=== PATIENT | male | born 1945 | race Caucasian/White ===

== ENCOUNTER 2020-08-23 09:01 | Inpatient (IN) | payer MEDICARE, BC ==
[2020-08-23] MEDS ORDERED: Furosemide 40 MG/4 ML VIAL IVPUSH ONE (09:08)
[2020-08-23] MEDS ORDERED: Sodium Chloride 0.9% 10 ML Syringe FLUSH PRN ×2 (09:08→11:10)
--- NOTE | 2020-08-23 09:11 | EDM.PDOC ---
ED HPI GENERAL MEDICAL PROBLEM - General Chief Complaint: Respiratory Problem Stated Complaint: [facility] Time Seen by Provider: 08/23/20 09:06 Source of Information: Reports: Patient, EMS History Limitations: Reports: No Limitations - History of Present Illness INITIAL COMMENTS - FREE TEXT/NARRATIVE: 75-year-old male attends the ED per [facility] from the [facility] walk-in clinic this morning. Patient attended the clinic because of dyspnea gradually worsening over the last week. He was identified to have significant swelling of both lower extremities with dependent edema up to the knees. He was found to be hypoxic on their recordings with O2 sats in the upper 70s. Paramedics arrived and placed him on oxygen by nonrebreather mask at 8 L/min. O2 sats improved up to 96%. He was taken off the mask when she reached the ED and placed on nasal cannula at 3 L/min with O2 sats improved to 96% patient is not on home oxygen. By history he is still smoking and has a history of COPD and congestive heart failure. He has had both his COVID-19 shots. Patient reports that shortness of breath is gradually worsened over the last week. He states he slept fairly well last night in spite of dyspnea. He denies any orthopnea. He was not able to eat his breakfast this morning. Does have a mild cough nonproductive. Denies hemoptysis. Denies fever or chills. Onset: Gradual Onset Date: 08/17/20 Duration: Day(s):, Constant, Getting Worse Location: Reports: Chest (Dyspnea on minimal exertion. Weakness lower extremities.) Quality: Reports: Other (Dyspnea) Severity: Moderate (Moderate to severe.) Improves with: Reports: Rest Worsens with: Reports: Other (Any walking place about almost immediately.) Context: Denies: Activity, Exercise, Lifting, Sick Contact, Trauma, Other Associated Symptoms: Reports: Cough, cough w sputum (Very minimal sputum production.), Loss of Appetite, Malaise, Shortness of Breath, Weakness (Both lower extremities.). Denies: Fever/Chills, Headaches, Nausea/Vomiting, Rash, Seizure, Syncope Treatments [employer]: Reports: Other (see below) (Placed on oxygen by the paramedics.) - Related Data Allergies Allergy/AdvReac Type Severity Reaction Status Date / Time No Known Allergies Allergy Verified 08/23/20 09:11 Home Meds: Home Meds Aspirin [Lo-Dose Aspirin EC] 81 mg PO DAILY 08/23/20 [History] Cholecalciferol (Vitamin D3) [Vitamin D3] 25 mcg PO DAILY 08/23/20 [History] ClonazePAM [KlonoPIN] 1 mg PO BEDTIME 08/23/20 [History] Ezetimibe [Zetia] 10 mg PO DAILY 08/23/20 [History] Fish Oil/Borage/Flax/Om3,6,9 1 [[place] 3-6-9 Complex Softgel] 300 mg PO BID 08/23/20 [History] Multivitamin with Minerals [Multiple Vitamin] 1 cap PO DAILY 08/23/20 [History] Pravastatin [Pravachol] 20 mg PO DAILY 08/23/20 [History] Sertraline [Zoloft] 100 mg PO BEDTIME 08/23/20 [History] Vitamin B Complex 2 tab PO DAILY 08/23/20 [History] risperiDONE [Risperdal] 2 mg PO BEDTIME 08/23/20 [History] Past Medical History Cardiovascular History: Reports: Heart Failure, High Cholesterol, Hypertension, PVD, SOB on Exertion Respiratory History: Reports: COPD (Still smoking cigarettes.) Musculoskeletal History: Reports: Back Pain, Chronic (Mild.), Osteoarthritis (Affecting knees hips neck.) Psychiatric History: Reports: Depression, Other (See Below) (insomnia) Social & Family History - Tobacco Core Measures Tobacco Use/Smoking Within Last 30 Days: Yes Smoking Frequency Within Last 30 Days: Reports: Five or More Cigarettes Per Day Smokeless Tobacco Use in Last 30 Days: No Desires Tobacco Cessation Medication: Refuses FDA Approved Med - Living Situation & Occupation Living situation: Reports: , Alone Occupation: Retired ED ROS GENERAL - Review of Systems Review Of Systems: See Below Constitutional: Reports: Malaise, Weakness, Fatigue, Decreased Appetite. Denies: Fever, Chills, Weight Loss HEENT: Reports: Glasses Respiratory: Reports: Shortness of Breath, Wheezing, Cough, Sputum (Occasional). Denies: Pleuritic Chest Pain, Hemoptysis ( white sputum production.) Cardiovascular: Reports: Blood Pressure Problem, Dyspnea on Exertion (Chronic edema around his ankles. It is currently up to his knees bilaterally.), Edema. Denies: Claudication, Lightheadedness, Orthopnea, Palpitations Endocrine: Reports: Fatigue GI/Abdominal: Reports: Constipation (Occasional problems with constipation.), Decreased Appetite. Denies: Abdominal Pain, Nausea, Stool Incontinence, Vomiting : Reports: Frequency, Other (Nocturia x3.) Musculoskeletal: Reports: Back Pain, Joint Pain (Some intermittent problems with low back pain knees hips shoulders and neck at times.) Skin: Reports: No Symptoms Neurological: Reports: No Symptoms Psychiatric: Reports: No Symptoms Hematologic/Lymphatic: Reports: No Symptoms Immunologic: Reports: No Symptoms ED EXAM, GENERAL - Physical Exam Exam: See Below Exam Limited By: No Limitations General Appearance: Alert, WD/WN, No Apparent Distress, Other (Temperature is 36.4. Heart rate was 72 and sinus. Respiratory was 20 with O2 sats of 96 to 97% on 3 L/min by nasal cannula. BP is 144/87.) Eye Exam: Bilateral Eye: Normal Fundi (No scleral icterus or blepharal pallor.), PERRL Throat/Mouth: Normal Voice, Other (Diffuse erythema of the oropharynx from cigarette smoking. No signs of infection.). No: Normal Teeth, Dysphagia Head: Atraumatic, Normocephalic Neck: Normal Inspection, Supple, Limited Range of Motion (Loss of at least 10 degrees lateral flexion and extension of the neck.). No: Full Range of Motion, Carotid Bruit, Lymphadenopathy (L), Lymphadenopathy (R) Respiratory/Chest: Respiratory Distress (Tachypnea at rest.), Decreased Breath Sounds (Diminished air entry of the lower 20% of lung nettles bilaterally.), Rhonchi, Wheezing (Wheezing throughout all 5 lobes of the lung.). No: Lungs Clear, Normal Breath Sounds, No Accessory Muscle Use Cardiovascular: Regular Rate, Rhythm, No Gallop, No Murmur, No Rub, JVD (To 3 cm below the right angle of the mandible.). No: Normal Peripheral Pulses, No Edema Peripheral Pulses: 1+: Posterior Tibial (L) (Barely palpable pulses in both lower extremities limited by significant dependent edema of the feet), Posterior Tibial (R), Dorsalis Pedis (L), Dorsalis Pedis (R) GI/Abdominal: Normal Bowel Sounds, Soft, Non-Tender, No Organomegaly, Distended (And diffusely tympany to percussion due to aerophagia.), Hernia (Does have a easily reducible umbilical hernia that does not bother him. No surgical scars appreciated.) Back Exam: Normal Inspection, Other (Not able to assess range of motion of his lower back at this time.). No: CVA Tenderness (L), CVA Tenderness (R) Extremities: Pedal Edema (4+ pitting edema up past the knees bilaterally.). No: Normal Inspection Neurological: Alert, Oriented, CN II-XII Intact, Normal Cognition. No: Normal Gait (Not able to assess in the ED.) Psychiatric: Normal Affect, Normal Mood Skin Exam: Warm, Dry, Intact, Normal Color. No: Cyanosis, Increased Warmth #1 Interpretation EKG Date: 08/23/20 Time: 09:30 Rhythm: NSR Rate (Beats/Min): 64 [place]: RAD-Right [place] Deviation (127 degrees) P-Wave: Enlarged (Biatrial hypertrophy) QRS: Other (Poor R wave progression V2 to V6. Delayed transition consider right ventricular hypertrophy) ST-T: Other (T wave inversion V1 to V4 consider anterior wall ischemia) QT: Normal EKG Interpretation Comments: Abnormal ECG Course - Vital Signs Last Recorded V/S: Last Vital Signs Temp 36.4 C 08/23/20 09:08 Pulse 72 08/23/20 09:08 Resp 20 08/23/20 09:08 BP 144/87 H 08/23/20 09:08 Pulse Ox 100 08/23/20 09:19 - Orders/Labs/Meds Orders: Active Orders 24 hr Category Date Time Status RT Aerosol Therapy [RC] ASDIRECTED Care 08/23/20 09:12 Active Sodium Chloride 0.9% [Saline Flush] Med 08/23/20 09:08 Active 10 ml FLUSH ASDIRECTED PRN Peripheral IV Insertion Adult [OM.PC] Stat Oth 08/23/20 09:08 Ordered Medication Orders Acetaminophen (Acetaminophen 325 Mg Tab) 650 mg PO Q4H PRN PRN Reason: Pain (Mild 1-3)/fever Albuterol/Ipratropium (Albuterol/Ipratropium 3.0-0.5 Mg/3 Ml Neb Soln) 3 ml NEB Q4H EDWIN Aspirin (Aspirin 81 Mg Tab.Ec) 81 mg PO DAILY EDWIN Cholecalciferol (Cholecalciferol (Vitamin D3) 25 Mcg Tab) 25 mcg PO DAILY EDWIN Docusate Sodium (Docusate Sodium 100 Mg Cap) 100 mg PO BID PRN PRN Reason: Constipation Ezetimibe (Ezetimibe 10 Mg Tab) 10 mg PO DAILY EDWIN Furosemide (Furosemide 40 Mg/4 Ml Vial) 40 mg IVPUSH BIDDIURETIC EDWIN Heparin Sodium (Porcine) (Heparin Sodium 5,000 Units/Ml Vial) 5,000 units SUBCUT Q8H EDWIN Miscellaneous Information (Remove Patch *Nicotine*) 1 ea TRDERM DAILY EDWIN Multivitamins/Minerals/Vitamin C (Multivitamin Tab) 1 tab PO DAILY EDWIN Nicotine (Nicotine 14 Mg/24 Hr Patch) 14 mg TRDERM DAILY EDWIN Non-Formulary Medication (Fish Oil/Borage/Flax/Om3,6,9 1 [[place] 3-6-9 Complex Softgel]) 300 mg PO BID EDWIN Non-Formulary Medication (Vitamin B Complex) 2 tab PO DAILY EDWIN Ondansetron HCl (Ondansetron 4 Mg Tab.Dis) 4 mg PO Q4H PRN PRN Reason: nausea, able to take PO Pravastatin Sodium (Pravastatin 20 Mg Tab) 20 mg PO DAILY EDWIN Prednisone (Prednisone 20 Mg Tab) 40 mg PO DAILY EDWIN Stop: 08/27/20 23:59 Risperidone (Risperidone 1 Mg Tab) 2 mg PO BEDTIME EDWIN Sertraline HCl (Sertraline 50 Mg Tab) 100 mg PO BEDTIME EDWIN Sodium Chloride (Sodium Chloride 0.9% 10 Ml Syringe) 10 ml FLUSH ASDIRECTED PRN PRN Reason: Keep Vein Open Last Admin: 08/23/20 09:24 Dose: 10 ml Documented by: JOSE ALBERTO Sodium Chloride (Sodium Chloride 0.9% 10 Ml Syringe) 10 ml FLUSH ASDIRECTED PRN PRN Reason: Keep Vein Open Temazepam (Temazepam 7.5 Mg Cap) 7.5 mg PO BEDTIME PRN PRN Reason: Sleep Labs: Laboratory Tests 08/23/20 08/23/20 08/23/20 Range/Units 09:07 09:10 09:10 WBC 4.92 (4.23-9.07) K/mm3 RBC 5.09 (4.63-6.08) M/mm3 Hgb 17.4 (13.7-17.5) gm/dl Hct 53.7 H (40.1-51.0) % MCV 105.5 H (79.0-92.2) fl MCH 34.2 H (25.7-32.2) pg MCHC 32.4 (32.2-35.5) g/dl RDW Std Deviation 58.5 H (35.1-43.9) fL Plt Count 95 L (163-337) K/mm3 MPV 9.5 (9.4-12.3) fl Neut % (Auto) 81.5 H (34.0-67.9) % Lymph % (Auto) 10.8 L (21.8-53.1) % Tillman % (Auto) 6.9 (5.3-12.2) % Eos % (Auto) 0.6 L (0.8-7.0) Baso % (Auto) 0.2 (0.1-1.2) % Neut # (Auto) 4.01 (1.78-5.38) K/mm3 Lymph # (Auto) 0.53 L (1.32-3.57) K/mm3 Tillman # (Auto) 0.34 (0.30-0.82) K/mm3 Eos # (Auto) 0.03 L (0.04-0.54) K/mm3 Baso # (Auto) 0.01 (0.01-0.08) K/mm3 Manual Slide Review Abnormal smear PT 11.9 (9.7-12.0) SECONDS INR 1.11 APTT 28.9 (21.7-31.4) SECONDS Puncture Site Rt radial ABG pH 7.30 L (7.35-7.45) ABG pCO2 65.2 H (35.0-45.0) mmHg ABG pO2 100.0 (80.0-100.0) mmHg ABG HCO3 30.8 H (22.0-26.0) meq/L ABG O2 Saturation 98.0 H (96.0-97.0) % ABG Base Excess 2.2 H (-2-2.0) Marco Test Positive O2 Delivery Device Nasal cannula Oxygen Flow Rate 3.0 Sodium (136-145) mEq/L Potassium (3.5-5.1) mEq/L Chloride (98-107) mEq/L Carbon Dioxide (21-32) mEq/L Anion Gap (5-15) BUN (7-18) mg/dL Creatinine (0.7-1.3) mg/dL Est Cr Clr Drug Dosing Estimated GFR (MDRD) (>60) mL/min BUN/Creatinine Ratio (14-18) Glucose (70-99) mg/dL Calcium (8.5-10.1) mg/dL Magnesium (1.8-2.4) mg/dL Total Bilirubin (0.2-1.0) mg/dL AST (15-37) U/L ALT (16-63) U/L Alkaline Phosphatase (46-116) U/L Troponin I (0.00-0.056) ng/mL C-Reactive Protein (<1.0) mg/dL NT-Pro-B Natriuret Pep (0-450) pg/mL Total Protein (6.4-8.2) g/dl Albumin (3.4-5.0) g/dl Globulin gm/dL Albumin/Globulin Ratio (1-2) Urine Color (Yellow) Urine Appearance (Clear) Urine pH (5.0-8.0) Ur Specific [place] (1.005-1.030) Urine Protein (Negative) Urine Glucose (UA) (Negative) Urine Ketones (Negative) Urine Occult Blood (Negative) Urine Nitrite (Negative) Urine Bilirubin (Negative) Urine Urobilinogen (0.2-1.0) Ur Leukocyte Esterase (Negative) Urine RBC (0-5) /hpf Urine WBC (0-5) /hpf Ur Squamous Epith Cells (0-5) /hpf Urine Bacteria (FEW) /hpf Urine Mucus (FEW) /hpf SARS-CoV-2 RNA (SEAN) (NEGATIVE) 08/23/20 08/23/20 08/23/20 Range/Units 09:10 09:10 09:10 WBC (4.23-9.07) K/mm3 RBC (4.63-6.08) M/mm3 Hgb (13.7-17.5) gm/dl Hct (40.1-51.0) % MCV (79.0-92.2) fl MCH (25.7-32.2) pg MCHC (32.2-35.5) g/dl RDW Std Deviation (35.1-43.9) fL Plt Count (163-337) K/mm3 MPV (9.4-12.3) fl Neut % (Auto) (34.0-67.9) % Lymph % (Auto) (21.8-53.1) % Tillman % (Auto) (5.3-12.2) % Eos % (Auto) (0.8-7.0) Baso % (Auto) (0.1-1.2) % Neut # (Auto) (1.78-5.38) K/mm3 Lymph # (Auto) (1.32-3.57) K/mm3 Tillman # (Auto) (0.30-0.82) K/mm3 Eos # (Auto) (0.04-0.54) K/mm3 Baso # (Auto) (0.01-0.08) K/mm3 Manual Slide Review PT (9.7-12.0) SECONDS INR APTT (21.7-31.4) SECONDS Puncture Site ABG pH (7.35-7.45) ABG pCO2 (35.0-45.0) mmHg ABG pO2 (80.0-100.0) mmHg ABG HCO3 (22.0-26.0) meq/L ABG O2 Saturation (96.0-97.0) % ABG Base Excess (-2-2.0) Marco Test O2 Delivery Device Oxygen Flow Rate Sodium 132 L (136-145) mEq/L Potassium 4.5 (3.5-5.1) mEq/L Chloride 95 L (98-107) mEq/L Carbon Dioxide 34 H (21-32) mEq/L Anion Gap 7.5 (5-15) BUN 7 (7-18) mg/dL Creatinine 0.8 (0.7-1.3) mg/dL Est Cr Clr Drug Dosing TNP Estimated GFR (MDRD) > 60 (>60) mL/min BUN/Creatinine Ratio 8.8 L (14-18) Glucose 105 H (70-99) mg/dL Calcium 8.6 (8.5-10.1) mg/dL Magnesium 1.8 (1.8-2.4) mg/dL Total Bilirubin 0.6 (0.2-1.0) mg/dL AST 13 L (15-37) U/L ALT 20 (16-63) U/L Alkaline Phosphatase 56 (46-116) U/L Troponin I 0.032 (0.00-0.056) ng/mL C-Reactive Protein < 0.2 (<1.0) mg/dL NT-Pro-B Natriuret Pep 3487 H (0-450) pg/mL Total Protein 6.6 (6.4-8.2) g/dl Albumin 3.6 (3.4-5.0) g/dl Globulin 3.0 gm/dL Albumin/Globulin Ratio 1.2 (1-2) Urine Color (Yellow) Urine Appearance (Clear) Urine pH (5.0-8.0) Ur Specific [place] (1.005-1.030) Urine Protein (Negative) Urine Glucose (UA) (Negative) Urine Ketones (Negative) Urine Occult Blood (Negative) Urine Nitrite (Negative) Urine Bilirubin (Negative) Urine Urobilinogen (0.2-1.0) Ur Leukocyte Esterase (Negative) Urine RBC (0-5) /hpf Urine WBC (0-5) /hpf Ur Squamous Epith Cells (0-5) /hpf Urine Bacteria (FEW) /hpf Urine Mucus (FEW) /hpf SARS-CoV-2 RNA (SEAN) Negative (NEGATIVE) 08/23/20 Range/Units 09:10 WBC (4.23-9.07) K/mm3 RBC (4.63-6.08) M/mm3 Hgb (13.7-17.5) gm/dl Hct (40.1-51.0) % MCV (79.0-92.2) fl MCH (25.7-32.2) pg MCHC (32.2-35.5) g/dl RDW Std Deviation (35.1-43.9) fL Plt Count (163-337) K/mm3 MPV (9.4-12.3) fl Neut % (Auto) (34.0-67.9) % Lymph % (Auto) (21.8-53.1) % Tillman % (Auto) (5.3-12.2) % Eos % (Auto) (0.8-7.0) Baso % (Auto) (0.1-1.2) % Neut # (Auto) (1.78-5.38) K/mm3 Lymph # (Auto) (1.32-3.57) K/mm3 Tillman # (Auto) (0.30-0.82) K/mm3 Eos # (Auto) (0.04-0.54) K/mm3 Baso # (Auto) (0.01-0.08) K/mm3 Manual Slide Review PT (9.7-12.0) SECONDS INR APTT (21.7-31.4) SECONDS Puncture Site ABG pH (7.35-7.45) ABG pCO2 (35.0-45.0) mmHg ABG pO2 (80.0-100.0) mmHg ABG HCO3 (22.0-26.0) meq/L ABG O2 Saturation (96.0-97.0) % ABG Base Excess (-2-2.0) Marco Test O2 Delivery Device Oxygen Flow Rate Sodium (136-145) mEq/L Potassium (3.5-5.1) mEq/L Chloride (98-107) mEq/L Carbon Dioxide (21-32) mEq/L Anion Gap (5-15) BUN (7-18) mg/dL Creatinine (0.7-1.3) mg/dL Est Cr Clr Drug Dosing Estimated GFR (MDRD) (>60) mL/min BUN/Creatinine Ratio (14-18) Glucose (70-99) mg/dL Calcium (8.5-10.1) mg/dL Magnesium (1.8-2.4) mg/dL Total Bilirubin (0.2-1.0) mg/dL AST (15-37) U/L ALT (16-63) U/L Alkaline Phosphatase (46-116) U/L Troponin I (0.00-0.056) ng/mL C-Reactive Protein (<1.0) mg/dL NT-Pro-B Natriuret Pep (0-450) pg/mL Total Protein (6.4-8.2) g/dl Albumin (3.4-5.0) g/dl Globulin gm/dL Albumin/Globulin Ratio (1-2) Urine Color Yellow (Yellow) Urine Appearance Clear (Clear) Urine pH 6.5 (5.0-8.0) Ur Specific [place] 1.020 (1.005-1.030) Urine Protein Negative (Negative) Urine Glucose (UA) Negative (Negative) Urine Ketones Negative (Negative) Urine Occult Blood Negative (Negative) Urine Nitrite Negative (Negative) Urine Bilirubin Negative (Negative) Urine Urobilinogen 0.2 (0.2-1.0) Ur Leukocyte Esterase Negative (Negative) Urine RBC Not seen (0-5) /hpf Urine WBC Not seen (0-5) /hpf Ur Squamous Epith Cells 0-5 (0-5) /hpf Urine Bacteria Not seen (FEW) /hpf Urine Mucus Not seen (FEW) /hpf SARS-CoV-2 RNA (SEAN) (NEGATIVE) Meds: Medications Generic Name Dose Route Start Last Admin Trade Name Freq PRN Reason Stop Dose Admin Acetaminophen 650 mg 08/23/20 11:12 Acetaminophen 325 Mg Tab PO Q4H PRN Pain (Mild 1-3)/fever Albuterol/Ipratropium 3 ml 08/23/20 14:00 Albuterol/Ipratropium 3.0-0.5 Mg/3 Ml Neb Soln NEB Q4H [facility] Aspirin 81 mg 08/24/20 09:00 Aspirin 81 Mg Tab.Ec PO DAILY [facility] Cholecalciferol 25 mcg 08/24/20 09:00 Cholecalciferol (Vitamin D3) 25 Mcg Tab PO DAILY [facility] Docusate Sodium 100 mg 08/23/20 11:12 Docusate Sodium 100 Mg Cap PO BID PRN Constipation Ezetimibe 10 mg 08/24/20 09:00 Ezetimibe 10 Mg Tab PO DAILY [facility] Furosemide 40 mg 08/23/20 14:00 Furosemide 40 Mg/4 Ml Vial IVPUSH BIDDIURETIC [facility] Heparin Sodium (Porcine) 5,000 units 08/23/20 11:15 Heparin Sodium 5,000 Units/Ml Vial SUBCUT Q8H [facility] Miscellaneous Information 1 ea 08/24/20 09:00 Remove Patch *Nicotine* TRDERM DAILY [facility] Multivitamins/Minerals/Vitamin C 1 tab 08/24/20 09:00 Multivitamin Tab PO DAILY [facility] Nicotine 14 mg 08/23/20 11:30 Nicotine 14 Mg/24 Hr Patch TRDERM DAILY [facility] Non-Formulary Medication 300 mg 08/23/20 21:00 Fish Oil/Borage/Flax/Om3,6,9 1 [[place] 3-6-9 Complex Softgel] PO BID EDWIN Non-Formulary Medication 2 tab 08/24/20 09:00 Vitamin B Complex PO DAILY [facility] Ondansetron HCl 4 mg 08/23/20 11:12 Ondansetron 4 Mg Tab.Dis PO Q4H PRN nausea, able to take PO Pravastatin Sodium 20 mg 08/24/20 09:00 Pravastatin 20 Mg Tab PO DAILY EDWIN Prednisone 40 mg 08/23/20 11:30 Prednisone 20 Mg Tab PO 08/27/20 23:59 DAILY EDWIN Risperidone 2 mg 08/23/20 21:00 Risperidone 1 Mg Tab PO BEDTIME EDWIN Sertraline HCl 100 mg 08/23/20 21:00 Sertraline 50 Mg Tab PO BEDTIME EDWIN Sodium Chloride 10 ml 08/23/20 09:08 08/23/20 09:24 Sodium Chloride 0.9% 10 Ml Syringe FLUSH 10 ml ASDIRECTED PRN Administration Keep Vein Open Sodium Chloride 10 ml 08/23/20 11:10 Sodium Chloride 0.9% 10 Ml Syringe FLUSH ASDIRECTED PRN Keep Vein Open Temazepam 7.5 mg 08/23/20 11:12 Temazepam 7.5 Mg Cap PO BEDTIME PRN Sleep Discontinued Medications Generic Name Dose Route Start Last Admin Trade Name Freq PRN Reason Stop Dose Admin Albuterol/Ipratropium 3 ml 08/23/20 09:12 08/23/20 09:20 Albuterol/Ipratropium 3.0-0.5 Mg/3 Ml Neb Soln NEB 3 ml Q4H PRN Administration Shortness Of Breath/wheezing Albuterol/Ipratropium 3 ml 08/23/20 11:12 Albuterol/Ipratropium 3.0-0.5 Mg/3 Ml Neb Soln NEB Q4H PRN Shortness Of Breath/wheezing Albuterol/Ipratropium 3 ml 08/23/20 11:45 Albuterol/Ipratropium 3.0-0.5 Mg/3 Ml Neb Soln NEB Q4H EDWIN Furosemide 40 mg 08/23/20 09:08 08/23/20 09:23 Furosemide 40 Mg/4 Ml Vial IVPUSH 08/23/20 09:09 40 mg NOW ONE Administration - Radiology Interpretation Free Text/Narrative:: 75-year-old male presents to the ED after attending the walk-in clinic at [place] across the street. He went to the clinic due to increasing dyspnea over the last week. They identified his O2 sats to be in the upper 70s. Ambulance was called and transported the patient to the ED. Patient was started on nonrebreather mask at 8 L/min. Switch to a nasal cannula once he got into the ED at 3 L/min and this achieved O2 sats of 96%. He is not on home oxygen. He c arries a history of COPD from cigarette smoking and continues to smoke cigarettes. He also has a history of congestive heart failure. Has appreciate increased edema both lower extremities over the last week. Decreased appetite. Not really aware of abdominal distention or discomfort or excessive burping or belching. Review of his med list does not reveal any diuretic. He denies having any significant chest discomfort in the last week or 2. Plan chest x-ray portable. ECG. Routine labs including cardiac markers and BNP. ABGs to be done. Saline lock will be started. He will be given Lasix 40 mg IV. - Re-Assessments/Exams Free Text/Narrative Re-Assessment/Exam: 08/23/20 09:40 chest x-ray done portably reveals mildly hyperinflated lungs nettles. He is rotated to the right on this chest x-ray. Cardiac silhouette upper limits of normal. Prominence of both pulmonary arteries appreciated. No pleural effusions there is minimal blunting of the right costovertebral angle. Lung parenchyma revealed mild fibrosis right lower lobe and right middle lobe. Otherwise clear with no signs of pneumonia. 08/23/20 09:42 Total white count is 4.92 with 81.5% neutrophils. Hemoglobin is 17.4 with hematocrit of 53.7 suggesting some degree of hemoconcentration. Platelet count is low at 95,000. ABGs revealed a pH of 7.30 with a PCO2 of 65.2. PO2 was 100 with a bicarb of 30.8 and a saturation of 98% on nasal cannula at 3 L/min. Oxygen will be turned down to 2 L/min. 08/23/20 09:57 Sodium is slightly low at 132. Potassium is normal at 4.5. Ch loride 95 with a bicarb of 34. Anion gap is 7.5. BUN is 7 with a creatinine of 0.8 and a GFR greater than 60. Glucose is 105. Calcium is 8.6. Magnesium 1.8. Total bilirubin 0.6 with a normal liver function test otherwise. Troponin I 0.032. C-reactive protein is less than 0.2. BNP is 3487. Total protein 6.6 with an albumin fraction of 3.6. O2 sats are maintained at 98% on 2 L/min by nasal cannula. 08/23/20 10:12 COVID-19 screen is negative. 02 Sats are staying around 94 to 95% on 2 L/min. 08/23/20 10:32 O2 sats dropped to 78% on room air. Placed back on oxygen at 2 L/min by nasal cannula. It appears he will require admission to the hospital for further evaluation of his rather new onset congestive heart failure. Patient lives alone in his own home. Will discuss case with on-call hospitalist Dr. Singer. 08/23/20 10:59Dr Dr Singer--line maintainer section hospitalist has presented to the ED and he will see Mr Styles in conultation. Departure - Departure Time of Disposition: 12:00 Disposition: Admitted As Inpatient 64 Condition: Fair Clinical Impression: Hypoxia, Acute respiratory failure with hypoxia and hypercarbia, Nicotine dependence CHF (congestive heart failure), NYHA class II Qualifiers: Congestive heart failure type: unspecified Qualified Code(s): I50.9 - Heart failure, unspecified COPD (chronic obstructive pulmonary disease) Qualifiers: 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(s): J43.1 - Panlobular emphysema - Discharge Information *PRESCRIPTION DRUG MONITORING PROGRAM REVIEWED*: Not Applicable *COPY OF PRESCRIPTION DRUG MONITORING REPORT IN PATIENT DIONICIO: Not Applicable Sepsis Event Note (ED) - Focused Exam Vital Signs: Vital Signs Temp Pulse Resp BP Pulse Ox Pulse Ox 08/23/20 09:19 100 08/23/20 09:12 99 08/23/20 09:08 36.4 C 72 20 144/87 H 97 - My Orders Last 24 Hours: My Active Orders 08/23/20 09:08 Sodium Chloride 0.9% [Saline Flush] 10 ml FLUSH ASDIRECTED PRN Peripheral IV Insertion Adult [OM.PC] Stat 08/23/20 09:12 RT Aerosol Therapy [RC] ASDIRECTED - Assessment/Plan Last 24 Hours: My Active Orders 08/23/20 09:08 Sodium Chloride 0.9% [Saline Flush] 10 ml FLUSH ASDIRECTED PRN Peripheral IV Insertion Adult [OM.PC] Stat 08/23/20 09:12 RT Aerosol Therapy [RC] ASDIRECTED
[2020-08-23] MEDS ORDERED: Albuterol/Ipratropium 3.0-0.5 MG/3 ML Neb Soln NEB PRN ×2 (09:12→11:12)
--- NOTE | 2020-08-23 11:00 | CR ---
Chest: Portable view of the chest was obtained. Comparison: No prior chest imaging is available. Heart size and mediastinum are within normal limits for portable technique. Minimal blunting of the right lateral costophrenic angle is seen. Lungs otherwise show no acute parenchymal change. Bony structures are osteopenic. Several old healed right-sided rib fractures are noted. Impression: 1. Blunting of the right lateral costophrenic angle either due to minimal pleural effusion or scarring. 2. Nothing acute is otherwise seen on portable chest x-ray. Diagnostic code #2
[2020-08-23] MEDS ORDERED: Acetaminophen 325 MG Tab PO PRN (11:12)
[2020-08-23] MEDS ORDERED: Ondansetron 4 MG Tab.DIS PO PRN (11:12)
[2020-08-23] MEDS ORDERED: Docusate Sodium 100 MG Cap PO PRN (11:12)
[2020-08-23] MEDS ORDERED: Heparin Sodium 5,000 Units/ML Vial SUBCUT SCH (11:15)
--- NOTE | 2020-08-23 11:26 | PCM.HP.2 ---
H&P History of Present Illness - General Date of Service: 08/23/20 Admit Problem/Dx: Admission Diagnosis/Problem Admission Diagnosis/Problem CHF, Acute Hypoxic Respiratory Failure Source of Information: Patient, Provider History Limitations: Reports: No Limitations - History of Present Illness Initial Comments - Free Text/Narative: The patient is a 75-year-old male with a past medical history as listed below who presents to the [facility] emergency department from the local outpatient clinic due to increased shortness of breath and increased lower extremity edema. Patient states that he was in his usual state of health up until a couple of months ago when he started noticing that with activity he became more short of breath. This has continued and has progressed to the point where it has affected his activities of daily living. He cannot walk across the house without becoming short of breath to the point where he has to sit down and catch his breath. He denies any orthopnea, or paroxysmal nocturnal dyspnea. In addition, within the past 2 weeks he has noted increased lower extremity edema starting in the feet and increasing approximately up to the midshin. He denies any skin tightness, skin changes or blistering. He has appreciated a cough but it has been nonproductive. No recent sick contacts or recent travel. The patient does not endorse a history of heart failure. He states that he has been smoking for about 25 years; at least 1/2 pack/day. He presented to the outpatient clinic this morning mostly due to the increasing lower extremity edema. He was sent to the emergency department when he was found to be exquisitely hypoxic and the high 60s and low 70s percentile for oxygen saturation. This was remedied by nasal cannula oxygen once he presented to the emergency department. He was placed on a simple mask by EMS during transport. Since being on 2 to 3 L of nasal cannula supplemental oxygen, he has been saturating between 88 and 94%. He has been comfortable. Work-up in the emergency department was notable for decreased breath sounds both with inspiratory and expiratory effort. Lower extremity edema was notable. Chest x-ray showed large lung volumes but not with overt CHF. Beta natruretic peptide was increased; upwards 3500. Patient was referred to the internal medicine service for management of acute hypoxic respiratory failure and new CHF. A 14 point review of systems was reviewed with the patient entirely and only pertinent for the above information. CODE STATUS: Reviewed and he wishes to be DNR/DNI. - Related Data Allergies/Adverse Reactions: Allergies Allergy/AdvReac Type Severity Reaction Status Date / Time No Known Allergies Allergy Verified 08/23/20 09:11 Home Medications: Home Meds Aspirin [Lo-Dose Aspirin EC] 81 mg PO DAILY 08/23/20 [History] Cholecalciferol (Vitamin D3) [Vitamin D3] 25 mcg PO DAILY 08/23/20 [History] ClonazePAM [KlonoPIN] 1 mg PO BEDTIME 08/23/20 [History] Ezetimibe [Zetia] 10 mg PO DAILY 08/23/20 [History] Fish Oil/Borage/Flax/Om3,6,9 1 [Donner 3-6-9 Complex Softgel] 300 mg PO BID 08/23/20 [History] Multivitamin with Minerals [Multiple Vitamin] 1 cap PO DAILY 08/23/20 [History] Pravastatin [Pravachol] 20 mg PO DAILY 08/23/20 [History] Sertraline [Zoloft] 100 mg PO BEDTIME 08/23/20 [History] Vitamin B Complex 2 tab PO DAILY 08/23/20 [History] risperiDONE [Risperdal] 2 mg PO BEDTIME 08/23/20 [History] Past Medical History Cardiovascular History: Reports: Heart Failure, High Cholesterol, Hypertension, PVD, SOB on Exertion Respiratory History: Reports: COPD (Still smoking cigarettes.) Musculoskeletal History: Reports: Back Pain, Chronic (Mild.), Osteoarthritis (Affecting knees hips neck.) Psychiatric History: Reports: Depression, Other (See Below) (insomnia) - Past Surgical History HEENT Surgical History: Reports: Other (See Below) Other HEENT Surgeries/Procedures: glasses Social & Family History - Tobacco Use Tobacco Use Status *Q: Current Every Day Tobacco User Years of Tobacco use: 50 Packs/Tins Daily: 0.5 - Caffeine Use Caffeine Use: Reports: Coffee - Recreational Drug Use Recreational Drug Use: No - Living Situation & Occupation Living situation: Reports: , Alone Occupation: Retired H&P Review of Systems - Review of Systems: Review Of Systems: Comprehensive ROS is negative, except as noted in HPI. Exam - Exam Exam: See Below - Vital Signs Vital Signs: Last Vital Signs Temp 97.6 F 08/23/20 09:08 Pulse 72 08/23/20 09:08 Resp 20 08/23/20 09:08 BP 144/87 H 08/23/20 09:08 Pulse Ox 100 08/23/20 09:19 Weight: 153 lb - Exam Quality Assessment: Supplemental Oxygen, DVT Prophylaxis HEENT: Conjunctiva Clear, EOMI, Nares Patent Neck: Supple, Trachea Midline Lungs: Decreased Breath Sounds, Rales (Lower lobes), Wheezing (Mild end expiratory wheezing throughout) Cardiovascular: Regular Rate, Regular Rhythm, Normal S1, Normal S2 GI/Abdominal Exam: Normal Bowel Sounds, Soft, Non-Tender, No Distention Extremities: Normal Inspection, Pedal Edema Skin: Warm, Dry Neuro Extensive - Mental Status: Alert, Oriented x3, Normal Mood/Affect Neuro Extensive - Motor, Sensory, Reflexes: CN II-XII Intact - Patient Data Lab Results Last 24 hrs: Laboratory Results - last 24 hr 08/23/20 08/23/20 08/23/20 Range/Units 09:07 09:10 09:10 WBC 4.92 (4.23-9.07) K/mm3 RBC 5.09 (4.63-6.08) M/mm3 Hgb 17.4 (13.7-17.5) gm/dl Hct 53.7 H (40.1-51.0) % MCV 105.5 H (79.0-92.2) fl MCH 34.2 H (25.7-32.2) pg MCHC 32.4 (32.2-35.5) g/dl RDW Std Deviation 58.5 H (35.1-43.9) fL Plt Count 95 L (163-337) K/mm3 MPV 9.5 (9.4-12.3) fl Neut % (Auto) 81.5 H (34.0-67.9) % Lymph % (Auto) 10.8 L (21.8-53.1) % [place] % (Auto) 6.9 (5.3-12.2) % Eos % (Auto) 0.6 L (0.8-7.0) Baso % (Auto) 0.2 (0.1-1.2) % Neut # (Auto) 4.01 (1.78-5.38) K/mm3 Lymph # (Auto) 0.53 L (1.32-3.57) K/mm3 [place] # (Auto) 0.34 (0.30-0.82) K/mm3 Eos # (Auto) 0.03 L (0.04-0.54) K/mm3 Baso # (Auto) 0.01 (0.01-0.08) K/mm3 Manual Slide Review Abnormal smear PT 11.9 (9.7-12.0) SECONDS INR 1.11 APTT 28.9 (21.7-31.4) SECONDS Puncture Site Rt radial ABG pH 7.30 L (7.35-7.45) ABG pCO2 65.2 H (35.0-45.0) mmHg ABG pO2 100.0 (80.0-100.0) mmHg ABG HCO3 30.8 H (22.0-26.0) meq/L ABG O2 Saturation 98.0 H (96.0-97.0) % ABG Base Excess 2.2 H (-2-2.0) Marco Test Positive O2 Delivery Device Nasal cannula Oxygen Flow Rate 3.0 Sodium (136-145) mEq/L Potassium (3.5-5.1) mEq/L Chloride (98-107) mEq/L Carbon Dioxide (21-32) mEq/L Anion Gap (5-15) BUN (7-18) mg/dL Creatinine (0.7-1.3) mg/dL Est Cr Clr Drug Dosing Estimated GFR (MDRD) (>60) mL/min BUN/Creatinine Ratio (14-18) Glucose (70-99) mg/dL Calcium (8.5-10.1) mg/dL Magnesium (1.8-2.4) mg/dL Total Bilirubin (0.2-1.0) mg/dL AST (15-37) U/L ALT (16-63) U/L Alkaline Phosphatase (46-116) U/L Troponin I (0.00-0.056) ng/mL C-Reactive Protein (<1.0) mg/dL NT-Pro-B Natriuret Pep (0-450) pg/mL Total Protein (6.4-8.2) g/dl Albumin (3.4-5.0) g/dl Globulin gm/dL Albumin/Globulin Ratio (1-2) Urine Color (Yellow) Urine Appearance (Clear) Urine pH (5.0-8.0) Ur Specific [place] (1.005-1.030) Urine Protein (Negative) Urine Glucose (UA) (Negative) Urine Ketones (Negative) Urine Occult Blood (Negative) Urine Nitrite (Negative) Urine Bilirubin (Negative) Urine Urobilinogen (0.2-1.0) Ur Leukocyte Esterase (Negative) Urine RBC (0-5) /hpf Urine WBC (0-5) /hpf Ur Squamous Epith Cells (0-5) /hpf Urine Bacteria (FEW) /hpf Urine Mucus (FEW) /hpf SARS-CoV-2 RNA (SEAN) (NEGATIVE) 08/23/20 08/23/20 08/23/20 Range/Units 09:10 09:10 09:10 WBC (4.23-9.07) K/mm3 RBC (4.63-6.08) M/mm3 Hgb (13.7-17.5) gm/dl Hct (40.1-51.0) % MCV (79.0-92.2) fl MCH (25.7-32.2) pg MCHC (32.2-35.5) g/dl RDW Std Deviation (35.1-43.9) fL Plt Count (163-337) K/mm3 MPV (9.4-12.3) fl Neut % (Auto) (34.0-67.9) % Lymph % (Auto) (21.8-53.1) % [place] % (Auto) (5.3-12.2) % Eos % (Auto) (0.8-7.0) Baso % (Auto) (0.1-1.2) % Neut # (Auto) (1.78-5.38) K/mm3 Lymph # (Auto) (1.32-3.57) K/mm3 [place] # (Auto) (0.30-0.82) K/mm3 Eos # (Auto) (0.04-0.54) K/mm3 Baso # (Auto) (0.01-0.08) K/mm3 Manual Slide Review PT (9.7-12.0) SECONDS INR APTT (21.7-31.4) SECONDS Puncture Site ABG pH (7.35-7.45) ABG pCO2 (35.0-45.0) mmHg ABG pO2 (80.0-100.0) mmHg ABG HCO3 (22.0-26.0) meq/L ABG O2 Saturation (96.0-97.0) % ABG Base Excess (-2-2.0) Marco Test O2 Delivery Device Oxygen Flow Rate Sodium 132 L (136-145) mEq/L Potassium 4.5 (3.5-5.1) mEq/L Chloride 95 L (98-107) mEq/L Carbon Dioxide 34 H (21-32) mEq/L Anion Gap 7.5 (5-15) BUN 7 (7-18) mg/dL Creatinine 0.8 (0.7-1.3) mg/dL Est Cr Clr Drug Dosing TNP Estimated GFR (MDRD) > 60 (>60) mL/min BUN/Creatinine Ratio 8.8 L (14-18) Glucose 105 H (70-99) mg/dL Calcium 8.6 (8.5-10.1) mg/dL Magnesium 1.8 (1.8-2.4) mg/dL Total Bilirubin 0.6 (0.2-1.0) mg/dL AST 13 L (15-37) U/L ALT 20 (16-63) U/L Alkaline Phosphatase 56 (46-116) U/L Troponin I 0.032 (0.00-0.056) ng/mL C-Reactive Protein < 0.2 (<1.0) mg/dL NT-Pro-B Natriuret Pep 3487 H (0-450) pg/mL Total Protein 6.6 (6.4-8.2) g/dl Albumin 3.6 (3.4-5.0) g/dl Globulin 3.0 gm/dL Albumin/Globulin Ratio 1.2 (1-2) Urine Color (Yellow) Urine Appearance (Clear) Urine pH (5.0-8.0) Ur Specific [place] (1.005-1.030) Urine Protein (Negative) Urine Glucose (UA) (Negative) Urine Ketones (Negative) Urine Occult Blood (Negative) Urine Nitrite (Negative) Urine Bilirubin (Negative) Urine Urobilinogen (0.2-1.0) Ur Leukocyte Esterase (Negative) Urine RBC (0-5) /hpf Urine WBC (0-5) /hpf Ur Squamous Epith Cells (0-5) /hpf Urine Bacteria (FEW) /hpf Urine Mucus (FEW) /hpf SARS-CoV-2 RNA (SEAN) Negative (NEGATIVE) 08/23/20 Range/Units 09:10 WBC (4.23-9.07) K/mm3 RBC (4.63-6.08) M/mm3 Hgb (13.7-17.5) gm/dl Hct (40.1-51.0) % MCV (79.0-92.2) fl MCH (25.7-32.2) pg MCHC (32.2-35.5) g/dl RDW Std Deviation (35.1-43.9) fL Plt Count (163-337) K/mm3 MPV (9.4-12.3) fl Neut % (Auto) (34.0-67.9) % Lymph % (Auto) (21.8-53.1) % [place] % (Auto) (5.3-12.2) % Eos % (Auto) (0.8-7.0) Baso % (Auto) (0.1-1.2) % Neut # (Auto) (1.78-5.38) K/mm3 Lymph # (Auto) (1.32-3.57) K/mm3 [place] # (Auto) (0.30-0.82) K/mm3 Eos # (Auto) (0.04-0.54) K/mm3 Baso # (Auto) (0.01-0.08) K/mm3 Manual Slide Review PT (9.7-12.0) SECONDS INR APTT (21.7-31.4) SECONDS Puncture Site ABG pH (7.35-7.45) ABG pCO2 (35.0-45.0) mmHg ABG pO2 (80.0-100.0) mmHg ABG HCO3 (22.0-26.0) meq/L ABG O2 Saturation (96.0-97.0) % ABG Base Excess (-2-2.0) Marco Test O2 Delivery Device Oxygen Flow Rate Sodium (136-145) mEq/L Potassium (3.5-5.1) mEq/L Chloride (98-107) mEq/L Carbon Dioxide (21-32) mEq/L Anion Gap (5-15) BUN (7-18) mg/dL Creatinine (0.7-1.3) mg/dL Est Cr Clr Drug Dosing Estimated GFR (MDRD) (>60) mL/min BUN/Creatinine Ratio (14-18) Glucose (70-99) mg/dL Calcium (8.5-10.1) mg/dL Magnesium (1.8-2.4) mg/dL Total Bilirubin (0.2-1.0) mg/dL AST (15-37) U/L ALT (16-63) U/L Alkaline Phosphatase (46-116) U/L Troponin I (0.00-0.056) ng/mL C-Reactive Protein (<1.0) mg/dL NT-Pro-B Natriuret Pep (0-450) pg/mL Total Protein (6.4-8.2) g/dl Albumin (3.4-5.0) g/dl Globulin gm/dL Albumin/Globulin Ratio (1-2) Urine Color Yellow (Yellow) Urine Appearance Clear (Clear) Urine pH 6.5 (5.0-8.0) Ur Specific [place] 1.020 (1.005-1.030) Urine Protein Negative (Negative) Urine Glucose (UA) Negative (Negative) Urine Ketones Negative (Negative) Urine Occult Blood Negative (Negative) Urine Nitrite Negative (Negative) Urine Bilirubin Negative (Negative) Urine Urobilinogen 0.2 (0.2-1.0) Ur Leukocyte Esterase Negative (Negative) Urine RBC Not seen (0-5) /hpf Urine WBC Not seen (0-5) /hpf Ur Squamous Epith Cells 0-5 (0-5) /hpf Urine Bacteria Not seen (FEW) /hpf Urine Mucus Not seen (FEW) /hpf SARS-CoV-2 RNA (SEAN) (NEGATIVE) Result Diagrams: 08/23/20 09:10 08/23/20 09:10 #1 Interpretation EKG Date: 08/23/20 Rhythm: NSR QRS: Normal ST-T: Other (T wave inversions in the anterior leads.) Comparison: NA - No Prior EKG EKG Interpretation Comments: Likely left atrial enlargement. Sepsis Event Note - Evaluation Sepsis Screening Result: No Definite Risk - Focused Exam Vital Signs: Vital Signs Temp Pulse Resp BP Pulse Ox Pulse Ox 08/23/20 09:19 100 08/23/20 09:12 99 08/23/20 09:08 97.6 F 72 20 144/87 H 97 Problem List Initiated/Reviewed/Updated: Yes Orders Last 24hrs: Active Orders 24 hr Category Date Time Status Admission Status [Patient Status] [ADT] Routine ADT 08/23/20 11:05 Active Patient Status [ADT] Routine ADT 08/23/20 11:07 Active EKG Documentation Completion [RC] STAT Care 08/23/20 09:07 Active Height and Weight [RC] DAILY Care 08/23/20 11:07 Active Oxygen Therapy [RC] ASDIRECTED Care 08/23/20 09:07 Active Oxygen Therapy [RC] PRN Care 08/23/20 11:07 Active Peripheral IV Care [RC] . DIRECTED Care 08/23/20 09:08 Active RT Aerosol Therapy [RC] ASDIRECTED Care 08/23/20 09:12 Active RT Aerosol Therapy [RC] ASDIRECTED Care 08/23/20 11:13 Ordered Up With Assistance [RC] ASDIRECTED Care 08/23/20 11:07 Active VTE/DVT Education [RC] PER UNIT ROUTINE Care 08/23/20 11:12 Ordered Vital Signs [RC] Q4H Care 08/23/20 11:07 Active Respiratory Care Assess and Treatment [CONS] Routine Cons 08/23/20 11:10 Active 2 Gram Sodium Diet [DIET] Diet 08/23/20 Dinner Active Echo 2D wo Cont [US] Routine Exams 08/23/20 11:15 Ordered BASIC METABOLIC PANEL,BMP [CHEM] DAILY Lab 08/24/20 06:00 Ordered BASIC METABOLIC PANEL,BMP [CHEM] DAILY Lab 08/25/20 06:00 Ordered BASIC METABOLIC PANEL,BMP [CHEM] DAILY Lab 08/26/20 06:00 Ordered BASIC METABOLIC PANEL,BMP [CHEM] DAILY Lab 08/27/20 06:00 Ordered Acetaminophen [TylenoL] Med 08/23/20 11:12 Ordered 650 mg PO Q4H PRN Albuterol/Ipratropium [DuoNeb 3.0-0.5 MG/3 ML] Med 08/23/20 11:12 Ordered 3 ml NEB Q4H PRN Aspirin [Halfprin] Med 08/24/20 09:00 Ordered 81 mg PO DAILY Cholecalciferol (Vitamin D3) [Vitamin D3] Med 08/24/20 09:00 Ordered 25 mcg PO DAILY Docusate Sodium [Colace] Med 08/23/20 11:12 Ordered 100 mg PO BID PRN Ezetimibe [Zetia] Med 08/24/20 09:00 Ordered 10 mg PO DAILY Fish Oil/Borage/Flax/Om3,6,9 1 [Donner 3-6-9 Complex Med 08/23/20 21:00 Ordered Softgel] 300 mg PO BID Furosemide [Lasix] Med 08/23/20 21:00 Ordered 40 mg IVPUSH BID Heparin Sodium Med 08/23/20 11:15 Ordered 5,000 units SUBCUT Q8H Multivitamin with Minerals [Multiple Vitamin] Med 08/24/20 09:00 Ordered 1 cap PO DAILY Nicotine [Habitrol] Med 08/23/20 11:30 Ordered 14 mg TRDERM DAILY Ondansetron [Zofran ODT] Med 08/23/20 11:12 Ordered 4 mg PO Q4H PRN Pravastatin [Pravachol] Med 08/24/20 09:00 Ordered 20 mg PO DAILY Remove Patch Med 08/24/20 09:00 Active 1 ea TRDERM DAILY Sertraline Med 08/23/20 21:00 Ordered 100 mg PO BEDTIME Sodium Chloride 0.9% [Saline Flush] Med 08/23/20 09:08 Active 10 ml FLUSH ASDIRECTED PRN Sodium Chloride 0.9% [Saline Flush] Med 08/23/20 11:10 Active 10 ml FLUSH ASDIRECTED PRN Temazepam [Restoril] Med 08/23/20 11:12 Ordered 7.5 mg PO BEDTIME PRN Vitamin B Complex Med 08/24/20 09:00 Ordered 2 tab PO DAILY predniSONE Med 08/23/20 11:30 Ordered 40 mg PO DAILY risperiDONE [Risperdal] Med 08/23/20 21:00 Ordered 2 mg PO BEDTIME Peripheral IV Insertion Adult [OM.PC] Stat Oth 08/23/20 09:08 Ordered Saline Lock Insert [OM.PC] Routine Oth 08/23/20 11:07 Ordered Resuscitation Status Routine Resus Stat 08/23/20 11:07 Ordered Medication Orders Acetaminophen (Acetaminophen 325 Mg Tab) 650 mg PO Q4H PRN PRN Reason: Pain (Mild 1-3)/fever Albuterol/Ipratropium (Albuterol/Ipratropium 3.0-0.5 Mg/3 Ml Neb Soln) 3 ml NEB Q4H PRN PRN Reason: Shortness Of Breath/wheezing Aspirin (Aspirin 81 Mg Tab.Ec) 81 mg PO DAILY [facility] Cholecalciferol (Cholecalciferol (Vitamin D3) 25 Mcg Tab) 25 mcg PO DAILY [facility] Docusate Sodium (Docusate Sodium 100 Mg Cap) 100 mg PO BID PRN PRN Reason: Constipation Ezetimibe (Ezetimibe 10 Mg Tab) 10 mg PO DAILY [facility] Furosemide (Furosemide 40 Mg/4 Ml Vial) 40 mg IVPUSH BID [facility] Heparin Sodium (Porcine) (Heparin Sodium 5,000 Units/Ml Vial) 5,000 units SUBCUT Q8H [facility] Miscellaneous Information (Remove Patch *Nicotine*) 1 ea TRDERM DAILY [facility] Multivitamins/Minerals/Vitamin C (Multivitamin Tab) 1 tab PO DAILY [facility] Nicotine (Nicotine 14 Mg/24 Hr Patch) 14 mg TRDERM DAILY [facility] Non-Formulary Medication (Fish Oil/Borage/Flax/Om3,6,9 1 [[place] 3-6-9 Complex Softgel]) 300 mg PO BID [facility] Non-Formulary Medication (Risperidone [Risperdal]) 2 mg PO BEDTIME [facility] Non-Formulary Medication (Sertraline) 100 mg PO BEDTIME [facility] Non-Formulary Medication (Vitamin B Complex) 2 tab PO DAILY [facility] Ondansetron HCl (Ondansetron 4 Mg Tab.Dis) 4 mg PO Q4H PRN PRN Reason: nausea, able to take PO Pravastatin Sodium (Pravastatin 20 Mg Tab) 20 mg PO DAILY [facility] Sodium Chloride (Sodium Chloride 0.9% 10 Ml Syringe) 10 ml FLUSH ASDIRECTED PRN PRN Reason: Keep Vein Open Last Admin: 08/23/20 09:24 Dose: 10 ml Documented by: JOSE ALBERTO Sodium Chloride (Sodium Chloride 0.9% 10 Ml Syringe) 10 ml FLUSH ASDIRECTED PRN PRN Reason: Keep Vein Open Temazepam (Temazepam 7.5 Mg Cap) 7.5 mg PO BEDTIME PRN PRN Reason: Sleep Assessment/Plan Comment:: 75-year-old male with a past medical history as noted above who presents to the [facility] emergency department due to hypoxia in the field and increased lower extremity edema. Referred to the internal medicine service for new congestive heart failure and treatment of hypoxia. 1. Acute hypoxic respiratory failure. Multifactorial in the setting of likely chronic obstructive pulmonary disease from long-term tobacco use, and new diagnosis of congestive heart failure. Admit to the hospitalist service. Daily weights by standing scale in the morning. Restricted sodium diet. Fluid restriction of 1.5 L/day. Lasix 40 mg IV twice daily. Echocardiogram pending. Respiratory therapy consult with Jake every 4 hours as needed. Incentive spirometry encouraged. 2. New diagnosis of congestive heart failure. Expect diastolic dysfunction considering physical examination and lack of pulmonary edema on imaging. Plan as above as per Daily weights, fluid restriction and diuresis. Monitor renal function. 3. Long-term tobacco abuse. Suspect component of COPD. Not formally diagnosed in the past. We will add prednisone for 5 days. Respiratory therapy consult and duo nebs as previously mentioned. Nicotine replacement. 4. Depression. Continue home medications at regular dose. CODE STATUS: DNR/DNI. DVT prophylaxis with heparin. - Mortality Measure Prognosis:: Good
[2020-08-23] MEDS ORDERED: predniSONE 20 MG Tab PO SCH (11:30)
[2020-08-23] MEDS ORDERED: Nicotine 14 MG/24 Hr Patch TRDERM SCH (11:30)
[2020-08-23] MEDS ORDERED: Albuterol/Ipratropium 3.0-0.5 MG/3 ML Neb Soln NEB SCH (11:45)
[2020-08-23] MEDS: Nicotine 14 MG/24 Hr Patch TRDERM SCH (12:44)
[2020-08-23] MEDS: predniSONE 20 MG Tab PO SCH (12:45)
[2020-08-23] MEDS: Heparin Sodium 5,000 Units/ML Vial SUBCUT SCH ×2 (12:45→20:30)
[2020-08-23] MEDS: Albuterol/Ipratropium 3.0-0.5 MG/3 ML Neb Soln NEB SCH ×3 (13:42→21:35)
[2020-08-23] MEDS: Furosemide 40 MG/4 ML VIAL IVPUSH SCH (14:55)
[2020-08-23] MEDS: risperiDONE 1 MG Tab PO SCH (20:29)
[2020-08-23] MEDS: Sertraline 50 MG Tab PO SCH (20:29)
[2020-08-24] MEDS: Albuterol/Ipratropium 3.0-0.5 MG/3 ML Neb Soln NEB SCH ×6 (01:43→21:00)
[2020-08-24] MEDS: Heparin Sodium 5,000 Units/ML Vial SUBCUT SCH ×3 (06:32→20:41)
[2020-08-24] MEDS: Furosemide 40 MG/4 ML VIAL IVPUSH SCH ×2 (06:33→13:47)
[2020-08-24] MEDS: predniSONE 20 MG Tab PO SCH (08:40)
[2020-08-24] MEDS: Nicotine 14 MG/24 Hr Patch TRDERM SCH (08:40)
[2020-08-24] MEDS: Biotin/Folic Acid/Vitamin C/Vitamin B Complex Tab PO SCH (08:40)
[2020-08-24] MEDS: Aspirin 81 MG Tab.EC PO SCH (08:40)
[2020-08-24] MEDS: Cholecalciferol (Vitamin D3) 25 MCG Tab PO SCH (08:40)
[2020-08-24] MEDS: Ezetimibe 10 MG Tab PO SCH (08:40)
[2020-08-24] MEDS: Pravastatin 20 MG Tab PO SCH (08:40)
[2020-08-24] MEDS: Fish Oil/Omega-3 Fatty Acids 1 Gm Cap PO SCH (08:40)
[2020-08-24] MEDS: Multivitamin Tab PO SCH (08:40)
--- NOTE | 2020-08-24 09:18 | PCM.PN ---
<Arnol Sherwood - Last Filed: 08/24/20 12:03> - General Info Date of Service: 08/24/20 Admission Dx/Problem (Free Text): Admission Diagnosis/Problem Admission Diagnosis/Problem CHF, Acute Hypoxic Respiratory Failure Functional Status: Reports: Pain Controlled, Tolerating Diet, Ambulating, Urinating, Incentive Spirometry. Denies: New Symptoms - Review of Systems General: Reports: No Symptoms. Denies: Fever, Weakness, Fatigue, Malaise, Chills HEENT: Reports: No Symptoms. Denies: Headaches, Sore Throat Pulmonary: Reports: Shortness of Breath, Cough. Denies: Sputum, Wheezing Cardiovascular: Reports: Dyspnea on Exertion, Edema (improved per patient ). Denies: Chest Pain, Palpitations Gastrointestinal: Denies: Abdominal Pain, Constipation, Diarrhea, Nausea, Vomiting Genitourinary: Reports: No Symptoms. Denies: Pain Musculoskeletal: Reports: No Symptoms Skin: Reports: No Symptoms. Denies: Cyanosis Neurological: Reports: No Symptoms. Denies: Confusion, Pre-Existing Deficit, Difficulty Walking, Weakness, Gait Disturbance Psychiatric: Reports: No Symptoms - Patient Data Vitals - Most Recent: Last Vital Signs Temp 98.4 F 08/24/20 04:21 Pulse 80 08/24/20 08:04 Resp 16 08/24/20 04:21 BP 119/51 L 08/24/20 08:04 Pulse Ox 88 L 08/24/20 08:04 Weight - Most Recent: 140 lb 11.2 oz I&O - Last 24 Hours: Intake & Output 08/23/20 08/24/20 08/24/20 22:59 06:59 14:59 Intake Total 440 500 Output Total 1300 1500 Balance -860 -1000 Lab Results Last 24 Hours: Laboratory Results - last 24 hr 08/23/20 08/23/20 08/23/20 Range/Units 09:07 09:10 09:10 WBC 4.92 (4.23-9.07) K/mm3 RBC 5.09 (4.63-6.08) M/mm3 Hgb 17.4 (13.7-17.5) gm/dl Hct 53.7 H (40.1-51.0) % MCV 105.5 H (79.0-92.2) fl MCH 34.2 H (25.7-32.2) pg MCHC 32.4 (32.2-35.5) g/dl RDW Std Deviation 58.5 H (35.1-43.9) fL Plt Count 95 L (163-337) K/mm3 MPV 9.5 (9.4-12.3) fl Neut % (Auto) 81.5 H (34.0-67.9) % Lymph % (Auto) 10.8 L (21.8-53.1) % [place] % (Auto) 6.9 (5.3-12.2) % Eos % (Auto) 0.6 L (0.8-7.0) Baso % (Auto) 0.2 (0.1-1.2) % Neut # (Auto) 4.01 (1.78-5.38) K/mm3 Lymph # (Auto) 0.53 L (1.32-3.57) K/mm3 [place] # (Auto) 0.34 (0.30-0.82) K/mm3 Eos # (Auto) 0.03 L (0.04-0.54) K/mm3 Baso # (Auto) 0.01 (0.01-0.08) K/mm3 Manual Slide Review Abnormal smear PT 11.9 (9.7-12.0) SECONDS INR 1.11 APTT 28.9 (21.7-31.4) SECONDS Puncture Site Rt radial ABG pH 7.30 L (7.35-7.45) ABG pCO2 65.2 H (35.0-45.0) mmHg ABG pO2 100.0 (80.0-100.0) mmHg ABG HCO3 30.8 H (22.0-26.0) meq/L ABG O2 Saturation 98.0 H (96.0-97.0) % ABG Base Excess 2.2 H (-2-2.0) Marco Test Positive O2 Delivery Device Nasal cannula Oxygen Flow Rate 3.0 Sodium (136-145) mEq/L Potassium (3.5-5.1) mEq/L Chloride (98-107) mEq/L Carbon Dioxide (21-32) mEq/L Anion Gap (5-15) BUN (7-18) mg/dL Creatinine (0.7-1.3) mg/dL Est Cr Clr Drug Dosing Estimated GFR (MDRD) (>60) mL/min BUN/Creatinine Ratio (14-18) Glucose (70-99) mg/dL Calcium (8.5-10.1) mg/dL Magnesium (1.8-2.4) mg/dL Total Bilirubin (0.2-1.0) mg/dL AST (15-37) U/L ALT (16-63) U/L Alkaline Phosphatase (46-116) U/L Troponin I (0.00-0.056) ng/mL C-Reactive Protein (<1.0) mg/dL NT-Pro-B Natriuret Pep (0-450) pg/mL Total Protein (6.4-8.2) g/dl Albumin (3.4-5.0) g/dl Globulin gm/dL Albumin/Globulin Ratio (1-2) Urine Color (Yellow) Urine Appearance (Clear) Urine pH (5.0-8.0) Ur Specific [place] (1.005-1.030) Urine Protein (Negative) Urine Glucose (UA) (Negative) Urine Ketones (Negative) Urine Occult Blood (Negative) Urine Nitrite (Negative) Urine Bilirubin (Negative) Urine Urobilinogen (0.2-1.0) Ur Leukocyte Esterase (Negative) Urine RBC (0-5) /hpf Urine WBC (0-5) /hpf Ur Squamous Epith Cells (0-5) /hpf Urine Bacteria (FEW) /hpf Urine Mucus (FEW) /hpf SARS-CoV-2 RNA (SEAN) (NEGATIVE) 08/23/20 08/23/20 08/23/20 Range/Units 09:10 09:10 09:10 WBC (4.23-9.07) K/mm3 RBC (4.63-6.08) M/mm3 Hgb (13.7-17.5) gm/dl Hct (40.1-51.0) % MCV (79.0-92.2) fl MCH (25.7-32.2) pg MCHC (32.2-35.5) g/dl RDW Std Deviation (35.1-43.9) fL Plt Count (163-337) K/mm3 MPV (9.4-12.3) fl Neut % (Auto) (34.0-67.9) % Lymph % (Auto) (21.8-53.1) % [place] % (Auto) (5.3-12.2) % Eos % (Auto) (0.8-7.0) Baso % (Auto) (0.1-1.2) % Neut # (Auto) (1.78-5.38) K/mm3 Lymph # (Auto) (1.32-3.57) K/mm3 [place] # (Auto) (0.30-0.82) K/mm3 Eos # (Auto) (0.04-0.54) K/mm3 Baso # (Auto) (0.01-0.08) K/mm3 Manual Slide Review PT (9.7-12.0) SECONDS INR APTT (21.7-31.4) SECONDS Puncture Site ABG pH (7.35-7.45) ABG pCO2 (35.0-45.0) mmHg ABG pO2 (80.0-100.0) mmHg ABG HCO3 (22.0-26.0) meq/L ABG O2 Saturation (96.0-97.0) % ABG Base Excess (-2-2.0) Marco Test O2 Delivery Device Oxygen Flow Rate Sodium 132 L (136-145) mEq/L Potassium 4.5 (3.5-5.1) mEq/L Chloride 95 L (98-107) mEq/L Carbon Dioxide 34 H (21-32) mEq/L Anion Gap 7.5 (5-15) BUN 7 (7-18) mg/dL Creatinine 0.8 (0.7-1.3) mg/dL Est Cr Clr Drug Dosing TNP Estimated GFR (MDRD) > 60 (>60) mL/min BUN/Creatinine Ratio 8.8 L (14-18) Glucose 105 H (70-99) mg/dL Calcium 8.6 (8.5-10.1) mg/dL Magnesium 1.8 (1.8-2.4) mg/dL Total Bilirubin 0.6 (0.2-1.0) mg/dL AST 13 L (15-37) U/L ALT 20 (16-63) U/L Alkaline Phosphatase 56 (46-116) U/L Troponin I 0.032 (0.00-0.056) ng/mL C-Reactive Protein < 0.2 (<1.0) mg/dL NT-Pro-B Natriuret Pep 3487 H (0-450) pg/mL Total Protein 6.6 (6.4-8.2) g/dl Albumin 3.6 (3.4-5.0) g/dl Globulin 3.0 gm/dL Albumin/Globulin Ratio 1.2 (1-2) Urine Color (Yellow) Urine Appearance (Clear) Urine pH (5.0-8.0) Ur Specific [place] (1.005-1.030) Urine Protein (Negative) Urine Glucose (UA) (Negative) Urine Ketones (Negative) Urine Occult Blood (Negative) Urine Nitrite (Negative) Urine Bilirubin (Negative) Urine Urobilinogen (0.2-1.0) Ur Leukocyte Esterase (Negative) Urine RBC (0-5) /hpf Urine WBC (0-5) /hpf Ur Squamous Epith Cells (0-5) /hpf Urine Bacteria (FEW) /hpf Urine Mucus (FEW) /hpf SARS-CoV-2 RNA (SEAN) Negative (NEGATIVE) 08/23/20 08/24/20 Range/Units 09:10 05:26 WBC (4.23-9.07) K/mm3 RBC (4.63-6.08) M/mm3 Hgb (13.7-17.5) gm/dl Hct (40.1-51.0) % MCV (79.0-92.2) fl MCH (25.7-32.2) pg MCHC (32.2-35.5) g/dl RDW Std Deviation (35.1-43.9) fL Plt Count (163-337) K/mm3 MPV (9.4-12.3) fl Neut % (Auto) (34.0-67.9) % Lymph % (Auto) (21.8-53.1) % [place] % (Auto) (5.3-12.2) % Eos % (Auto) (0.8-7.0) Baso % (Auto) (0.1-1.2) % Neut # (Auto) (1.78-5.38) K/mm3 Lymph # (Auto) (1.32-3.57) K/mm3 [place] # (Auto) (0.30-0.82) K/mm3 Eos # (Auto) (0.04-0.54) K/mm3 Baso # (Auto) (0.01-0.08) K/mm3 Manual Slide Review PT (9.7-12.0) SECONDS INR APTT (21.7-31.4) SECONDS Puncture Site ABG pH (7.35-7.45) ABG pCO2 (35.0-45.0) mmHg ABG pO2 (80.0-100.0) mmHg ABG HCO3 (22.0-26.0) meq/L ABG O2 Saturation (96.0-97.0) % ABG Base Excess (-2-2.0) Marco Test O2 Delivery Device Oxygen Flow Rate Sodium 139 (136-145) mEq/L Potassium 4.2 (3.5-5.1) mEq/L Chloride 100 (98-107) mEq/L Carbon Dioxide 37 H (21-32) mEq/L Anion Gap 6.2 (5-15) BUN 12 (7-18) mg/dL Creatinine 0.7 (0.7-1.3) mg/dL Est Cr Clr Drug Dosing 79.75 Estimated GFR (MDRD) > 60 (>60) mL/min BUN/Creatinine Ratio 17.1 (14-18) Glucose 88 (70-99) mg/dL Calcium 8.7 (8.5-10.1) mg/dL Magnesium (1.8-2.4) mg/dL Total Bilirubin (0.2-1.0) mg/dL AST (15-37) U/L ALT (16-63) U/L Alkaline Phosphatase (46-116) U/L Troponin I (0.00-0.056) ng/mL C-Reactive Protein (<1.0) mg/dL NT-Pro-B Natriuret Pep (0-450) pg/mL Total Protein (6.4-8.2) g/dl Albumin (3.4-5.0) g/dl Globulin gm/dL Albumin/Globulin Ratio (1-2) Urine Color Yellow (Yellow) Urine Appearance Clear (Clear) Urine pH 6.5 (5.0-8.0) Ur Specific [place] 1.020 (1.005-1.030) Urine Protein Negative (Negative) Urine Glucose (UA) Negative (Negative) Urine Ketones Negative (Negative) Urine Occult Blood Negative (Negative) Urine Nitrite Negative (Negative) Urine Bilirubin Negative (Negative) Urine Urobilinogen 0.2 (0.2-1.0) Ur Leukocyte Esterase Negative (Negative) Urine RBC Not seen (0-5) /hpf Urine WBC Not seen (0-5) /hpf Ur Squamous Epith Cells 0-5 (0-5) /hpf Urine Bacteria Not seen (FEW) /hpf Urine Mucus Not seen (FEW) /hpf SARS-CoV-2 RNA (SEAN) (NEGATIVE) Med Orders - Current: Current Medications Acetaminophen (Acetaminophen 325 Mg Tab) 650 mg PO Q4H PRN PRN Reason: Pain (Mild 1-3)/fever Albuterol/Ipratropium (Albuterol/Ipratropium 3.0-0.5 Mg/3 Ml Neb Soln) 3 ml NEB Q4H [facility] Last Admin: 08/24/20 06:13 Dose: 3 ml Documented by: Aspirin (Aspirin 81 Mg Tab.Ec) 81 mg PO DAILY [facility] Last Admin: 08/24/20 08:40 Dose: 81 mg Documented by: Cholecalciferol (Cholecalciferol (Vitamin D3) 25 Mcg Tab) 25 mcg PO DAILY [facility] Last Admin: 08/24/20 08:40 Dose: 25 mcg Documented by: Docusate Sodium (Docusate Sodium 100 Mg Cap) 100 mg PO BID PRN PRN Reason: Constipation Ezetimibe (Ezetimibe 10 Mg Tab) 10 mg PO DAILY [facility] Last Admin: 08/24/20 08:40 Dose: 10 mg Documented by: Fish Oil (Fish Oil/[place]-3 Fatty Acids 1 Gm Cap) 1 gm PO DAILY [facility] Last Admin: 08/24/20 08:40 Dose: 1 gm Documented by: Furosemide (Furosemide 40 Mg/4 Ml Vial) 40 mg IVPUSH BIDDIURETIC [facility] Last Admin: 08/24/20 06:33 Dose: 40 mg Documented by: Heparin Sodium (Porcine) (Heparin Sodium 5,000 Units/Ml Vial) 5,000 units SUBCUT Q8H [facility] Last Admin: 08/24/20 06:32 Dose: 5,000 units Documented by: Miscellaneous Information (Remove Patch *Nicotine*) 1 ea TRDERM DAILY [facility] Last Admin: 08/24/20 08:41 Dose: 1 ea Documented by: Multivitamins/Minerals/Vitamin C (Multivitamin Tab) 1 tab PO DAILY [facility] Last Admin: 08/24/20 08:40 Dose: 1 tab Documented by: Nicotine (Nicotine 14 Mg/24 Hr Patch) 14 mg TRDERM DAILY [facility] Last Admin: 08/24/20 08:40 Dose: 14 mg Documented by: Ondansetron HCl (Ondansetron 4 Mg Tab.Dis) 4 mg PO Q4H PRN PRN Reason: nausea, able to take PO Pravastatin Sodium (Pravastatin 20 Mg Tab) 20 mg PO DAILY [facility] Last Admin: 08/24/20 08:40 Dose: 20 mg Documented by: Prednisone (Prednisone 20 Mg Tab) 40 mg PO DAILY [facility] Last Admin: 08/24/20 08:40 Dose: 40 mg Documented by: Risperidone (Risperidone 1 Mg Tab) 2 mg PO BEDTIME [facility] Last Admin: 08/23/20 20:29 Dose: 2 mg Documented by: Sertraline HCl (Sertraline 50 Mg Tab) 100 mg PO BEDTIME [facility] Last Admin: 08/23/20 20:29 Dose: 100 mg Documented by: Sodium Chloride (Sodium Chloride 0.9% 10 Ml Syringe) 10 ml FLUSH ASDIRECTED PRN PRN Reason: Keep Vein Open Temazepam (Temazepam 7.5 Mg Cap) 7.5 mg PO BEDTIME PRN PRN Reason: Sleep Vitamin B Complex/Vit C/Folic Acid (Biotin/Folic Acid/Vitamin C/Vitamin B Complex Tab) 2 tab PO DAILY [facility] Last Admin: 08/24/20 08:40 Dose: 2 tab Documented by: Discontinued Medications Albuterol/Ipratropium (Albuterol/Ipratropium 3.0-0.5 Mg/3 Ml Neb Soln) 3 ml NEB Q4H PRN PRN Reason: Shortness Of Breath/wheezing Last Admin: 08/23/20 09:20 Dose: 3 ml Documented by: Albuterol/Ipratropium (Albuterol/Ipratropium 3.0-0.5 Mg/3 Ml Neb Soln) 3 ml NEB Q4H PRN PRN Reason: Shortness Of Breath/wheezing Albuterol/Ipratropium (Albuterol/Ipratropium 3.0-0.5 Mg/3 Ml Neb Soln) 3 ml NEB Q4H [facility] Furosemide (Furosemide 40 Mg/4 Ml Vial) 40 mg IVPUSH NOW ONE Stop: 08/23/20 09:09 Last Admin: 08/23/20 09:23 Dose: 40 mg Documented by: Heparin Sodium (Porcine) (Heparin Sodium 5,000 Units/Ml Vial) 5,000 units SUBCUT Q8H [facility] Last Admin: 08/23/20 13:14 Dose: Not Given Documented by: Nicotine (Nicotine 14 Mg/24 Hr Patch) 14 mg TRDERM DAILY [facility] Last Admin: 08/23/20 13:14 Dose: Not Given Documented by: Prednisone (Prednisone 20 Mg Tab) 40 mg PO DAILY [facility] Stop: 08/27/20 23:59 Last Admin: 08/23/20 13:14 Dose: Not Given Documented by: Sodium Chloride (Sodium Chloride 0.9% 10 Ml Syringe) 10 ml FLUSH ASDIRECTED PRN PRN Reason: Keep Vein Open Last Admin: 08/23/20 09:24 Dose: 10 ml Documented by: - Exam Quality Assessment: Supplemental Oxygen (2L ), DVT Prophylaxis. No: Urine Catheter General: Alert, Oriented, Cooperative, No Acute Distress HEENT: Pupils Equal, Pupils Reactive, Mucous Membr. Moist/[place] Neck: Supple, Trachea Midline Lungs: Normal Respiratory Effort, Decreased Breath Sounds. No: Crackles, Rhonchi, Wheezing Cardiovascular: Regular Rate, Regular Rhythm GI/Abdominal Exam: Normal Bowel Sounds, Soft, Non-Tender, No Distention (Male) Exam: Deferred Back Exam: Normal Inspection, Full Range of Motion Extremities: Normal Inspection, Normal Range of Motion, Non-Tender, Normal Capillary Refill, Pedal Edema (3+ bilaterally ) Peripheral Pulses: 2+: Radial (L), Radial (R) Skin: Warm, Dry, Intact Neurological: No New Focal Deficit Psy/Mental Status: Alert, Normal Affect, Normal Mood - Patient Data Lab Results Last 24 hrs: Laboratory Results - last 24 hr 08/23/20 08/23/20 08/23/20 Range/Units 09:07 09:10 09:10 WBC 4.92 (4.23-9.07) K/mm3 RBC 5.09 (4.63-6.08) M/mm3 Hgb 17.4 (13.7-17.5) gm/dl Hct 53.7 H (40.1-51.0) % MCV 105.5 H (79.0-92.2) fl MCH 34.2 H (25.7-32.2) pg MCHC 32.4 (32.2-35.5) g/dl RDW Std Deviation 58.5 H (35.1-43.9) fL Plt Count 95 L (163-337) K/mm3 MPV 9.5 (9.4-12.3) fl Neut % (Auto) 81.5 H (34.0-67.9) % Lymph % (Auto) 10.8 L (21.8-53.1) % [place] % (Auto) 6.9 (5.3-12.2) % Eos % (Auto) 0.6 L (0.8-7.0) Baso % (Auto) 0.2 (0.1-1.2) % Neut # (Auto) 4.01 (1.78-5.38) K/mm3 Lymph # (Auto) 0.53 L (1.32-3.57) K/mm3 [place] # (Auto) 0.34 (0.30-0.82) K/mm3 Eos # (Auto) 0.03 L (0.04-0.54) K/mm3 Baso # (Auto) 0.01 (0.01-0.08) K/mm3 Manual Slide Review Abnormal smear PT 11.9 (9.7-12.0) SECONDS INR 1.11 APTT 28.9 (21.7-31.4) SECONDS Puncture Site Rt radial ABG pH 7.30 L (7.35-7.45) ABG pCO2 65.2 H (35.0-45.0) mmHg ABG pO2 100.0 (80.0-100.0) mmHg ABG HCO3 30.8 H (22.0-26.0) meq/L ABG O2 Saturation 98.0 H (96.0-97.0) % ABG Base Excess 2.2 H (-2-2.0) Marco Test Positive O2 Delivery Device Nasal cannula Oxygen Flow Rate 3.0 Sodium (136-145) mEq/L Potassium (3.5-5.1) mEq/L Chloride (98-107) mEq/L Carbon Dioxide (21-32) mEq/L Anion Gap (5-15) BUN (7-18) mg/dL Creatinine (0.7-1.3) mg/dL Est Cr Clr Drug Dosing Estimated GFR (MDRD) (>60) mL/min BUN/Creatinine Ratio (14-18) Glucose (70-99) mg/dL Calcium (8.5-10.1) mg/dL Magnesium (1.8-2.4) mg/dL Total Bilirubin (0.2-1.0) mg/dL AST (15-37) U/L ALT (16-63) U/L Alkaline Phosphatase (46-116) U/L Troponin I (0.00-0.056) ng/mL C-Reactive Protein (<1.0) mg/dL NT-Pro-B Natriuret Pep (0-450) pg/mL Total Protein (6.4-8.2) g/dl Albumin (3.4-5.0) g/dl Globulin gm/dL Albumin/Globulin Ratio (1-2) Urine Color (Yellow) Urine Appearance (Clear) Urine pH (5.0-8.0) Ur Specific [place] (1.005-1.030) Urine Protein (Negative) Urine Glucose (UA) (Negative) Urine Ketones (Negative) Urine Occult Blood (Negative) Urine Nitrite (Negative) Urine Bilirubin (Negative) Urine Urobilinogen (0.2-1.0) Ur Leukocyte Esterase (Negative) Urine RBC (0-5) /hpf Urine WBC (0-5) /hpf Ur Squamous Epith Cells (0-5) /hpf Urine Bacteria (FEW) /hpf Urine Mucus (FEW) /hpf SARS-CoV-2 RNA (SEAN) (NEGATIVE) 08/23/20 08/23/20 08/23/20 Range/Units 09:10 09:10 09:10 WBC (4.23-9.07) K/mm3 RBC (4.63-6.08) M/mm3 Hgb (13.7-17.5) gm/dl Hct (40.1-51.0) % MCV (79.0-92.2) fl MCH (25.7-32.2) pg MCHC (32.2-35.5) g/dl RDW Std Deviation (35.1-43.9) fL Plt Count (163-337) K/mm3 MPV (9.4-12.3) fl Neut % (Auto) (34.0-67.9) % Lymph % (Auto) (21.8-53.1) % [place] % (Auto) (5.3-12.2) % Eos % (Auto) (0.8-7.0) Baso % (Auto) (0.1-1.2) % Neut # (Auto) (1.78-5.38) K/mm3 Lymph # (Auto) (1.32-3.57) K/mm3 [place] # (Auto) (0.30-0.82) K/mm3 Eos # (Auto) (0.04-0.54) K/mm3 Baso # (Auto) (0.01-0.08) K/mm3 Manual Slide Review PT (9.7-12.0) SECONDS INR APTT (21.7-31.4) SECONDS Puncture Site ABG pH (7.35-7.45) ABG pCO2 (35.0-45.0) mmHg ABG pO2 (80.0-100.0) mmHg ABG HCO3 (22.0-26.0) meq/L ABG O2 Saturation (96.0-97.0) % ABG Base Excess (-2-2.0) Marco Test O2 Delivery Device Oxygen Flow Rate Sodium 132 L (136-145) mEq/L Potassium 4.5 (3.5-5.1) mEq/L Chloride 95 L (98-107) mEq/L Carbon Dioxide 34 H (21-32) mEq/L Anion Gap 7.5 (5-15) BUN 7 (7-18) mg/dL Creatinine 0.8 (0.7-1.3) mg/dL Est Cr Clr Drug Dosing TNP Estimated GFR (MDRD) > 60 (>60) mL/min BUN/Creatinine Ratio 8.8 L (14-18) Glucose 105 H (70-99) mg/dL Calcium 8.6 (8.5-10.1) mg/dL Magnesium 1.8 (1.8-2.4) mg/dL Total Bilirubin 0.6 (0.2-1.0) mg/dL AST 13 L (15-37) U/L ALT 20 (16-63) U/L Alkaline Phosphatase 56 (46-116) U/L Troponin I 0.032 (0.00-0.056) ng/mL C-Reactive Protein < 0.2 (<1.0) mg/dL NT-Pro-B Natriuret Pep 3487 H (0-450) pg/mL Total Protein 6.6 (6.4-8.2) g/dl Albumin 3.6 (3.4-5.0) g/dl Globulin 3.0 gm/dL Albumin/Globulin Ratio 1.2 (1-2) Urine Color (Yellow) Urine Appearance (Clear) Urine pH (5.0-8.0) Ur Specific [place] (1.005-1.030) Urine Protein (Negative) Urine Glucose (UA) (Negative) Urine Ketones (Negative) Urine Occult Blood (Negative) Urine Nitrite (Negative) Urine Bilirubin (Negative) Urine Urobilinogen (0.2-1.0) Ur Leukocyte Esterase (Negative) Urine RBC (0-5) /hpf Urine WBC (0-5) /hpf Ur Squamous Epith Cells (0-5) /hpf Urine Bacteria (FEW) /hpf Urine Mucus (FEW) /hpf SARS-CoV-2 RNA (SEAN) Negative (NEGATIVE) 08/23/20 08/24/20 Range/Units 09:10 05:26 WBC (4.23-9.07) K/mm3 RBC (4.63-6.08) M/mm3 Hgb (13.7-17.5) gm/dl Hct (40.1-51.0) % MCV (79.0-92.2) fl MCH (25.7-32.2) pg MCHC (32.2-35.5) g/dl RDW Std Deviation (35.1-43.9) fL Plt Count (163-337) K/mm3 MPV (9.4-12.3) fl Neut % (Auto) (34.0-67.9) % Lymph % (Auto) (21.8-53.1) % [place] % (Auto) (5.3-12.2) % Eos % (Auto) (0.8-7.0) Baso % (Auto) (0.1-1.2) % Neut # (Auto) (1.78-5.38) K/mm3 Lymph # (Auto) (1.32-3.57) K/mm3 [place] # (Auto) (0.30-0.82) K/mm3 Eos # (Auto) (0.04-0.54) K/mm3 Baso # (Auto) (0.01-0.08) K/mm3 Manual Slide Review PT (9.7-12.0) SECONDS INR APTT (21.7-31.4) SECONDS Puncture Site ABG pH (7.35-7.45) ABG pCO2 (35.0-45.0) mmHg ABG pO2 (80.0-100.0) mmHg ABG HCO3 (22.0-26.0) meq/L ABG O2 Saturation (96.0-97.0) % ABG Base Excess (-2-2.0) Marco Test O2 Delivery Device Oxygen Flow Rate Sodium 139 (136-145) mEq/L Potassium 4.2 (3.5-5.1) mEq/L Chloride 100 (98-107) mEq/L Carbon Dioxide 37 H (21-32) mEq/L Anion Gap 6.2 (5-15) BUN 12 (7-18) mg/dL Creatinine 0.7 (0.7-1.3) mg/dL Est Cr Clr Drug Dosing 79.75 Estimated GFR (MDRD) > 60 (>60) mL/min BUN/Creatinine Ratio 17.1 (14-18) Glucose 88 (70-99) mg/dL Calcium 8.7 (8.5-10.1) mg/dL Magnesium (1.8-2.4) mg/dL Total Bilirubin (0.2-1.0) mg/dL AST (15-37) U/L ALT (16-63) U/L Alkaline Phosphatase (46-116) U/L Troponin I (0.00-0.056) ng/mL C-Reactive Protein (<1.0) mg/dL NT-Pro-B Natriuret Pep (0-450) pg/mL Total Protein (6.4-8.2) g/dl Albumin (3.4-5.0) g/dl Globulin gm/dL Albumin/Globulin Ratio (1-2) Urine Color Yellow (Yellow) Urine Appearance Clear (Clear) Urine pH 6.5 (5.0-8.0) Ur Specific [place] 1.020 (1.005-1.030) Urine Protein Negative (Negative) Urine Glucose (UA) Negative (Negative) Urine Ketones Negative (Negative) Urine Occult Blood Negative (Negative) Urine Nitrite Negative (Negative) Urine Bilirubin Negative (Negative) Urine Urobilinogen 0.2 (0.2-1.0) Ur Leukocyte Esterase Negative (Negative) Urine RBC Not seen (0-5) /hpf Urine WBC Not seen (0-5) /hpf Ur Squamous Epith Cells 0-5 (0-5) /hpf Urine Bacteria Not seen (FEW) /hpf Urine Mucus Not seen (FEW) /hpf SARS-CoV-2 RNA (SEAN) (NEGATIVE) Result Diagrams: 08/23/20 09:10 08/24/20 05:26 Sepsis Event Note - Evaluation Sepsis Screening Result: No Definite Risk - Focused Exam Vital Signs: Vital Signs Temp Pulse Resp BP Pulse Ox Pulse Ox 08/24/20 08:04 80 119/51 L 88 L 08/24/20 06:13 93 L 08/24/20 04:21 98.4 F 70 16 112/64 95 08/24/20 01:46 89 L 08/23/20 21:37 96 - Problem List & Annotations (1) New onset of congestive heart failure SNOMED Code(s): 72597925 Code(s): I50.9 - HEART FAILURE, UNSPECIFIED Status: Suspected Priority: High Current Visit: Yes (2) Depression SNOMED Code(s): 39022395 Code(s): F32.9 - MAJOR DEPRESSIVE DISORDER, SINGLE EPISODE, UNSPECIFIED Status: Chronic Priority: Medium Current Visit: Yes Qualifiers: Depression Type: other depression Qualified Code(s): F32.89 - Other specified depressive episodes (3) Acute respiratory failure with hypoxia and hypercarbia SNOMED Code(s): 064368538 Code(s): J96.01 - ACUTE RESPIRATORY FAILURE WITH HYPOXIA; J96.02 - ACUTE RESPIRATORY FAILURE WITH HYPERCAPNIA Status: Acute Priority: High Current Visit: Yes (4) COPD (chronic obstructive pulmonary disease) SNOMED Code(s): 27500637 Code(s): J44.9 - CHRONIC OBSTRUCTIVE PULMONARY DISEASE, UNSPECIFIED Status: Chronic Priority: Medium Current Visit: Yes Qualifiers: 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(s): J43.1 - Panlobular emphysema (5) Nicotine dependence SNOMED Code(s): 33173106 Code(s): F17.200 - NICOTINE DEPENDENCE, UNSPECIFIED, UNCOMPLICATED Status: Chronic Priority: High Current Visit: Yes Qualifiers: Nicotine product type: cigarettes Substance use status: unspecified nicotine-induced disorder Qualified Code(s): F17.219 - Nicotine dependence, cigarettes, with unspecified nicotine-induced disorders (6) HLD (hyperlipidemia) SNOMED Code(s): 32478601 Code(s): E78.5 - HYPERLIPIDEMIA, UNSPECIFIED Status: Chronic Priority: Low Current Visit: No Qualifiers: Hyperlipidemia type: unspecified Qualified Code(s): E78.5 - Hyperlipidemia, unspecified (7) HTN (hypertension) SNOMED Code(s): 57636016 Code(s): I10 - ESSENTIAL (PRIMARY) HYPERTENSION Status: Chronic Priority: Low Current Visit: No Qualifiers: Hypertension type: unspecified Qualified Code(s): I10 - Essential (primary) hypertension (8) PVD (peripheral vascular disease) SNOMED Code(s): 544508197 Code(s): I73.9 - PERIPHERAL VASCULAR DISEASE, UNSPECIFIED Status: Chronic Priority: Low Current Visit: No (9) Chronic back pain SNOMED Code(s): 911943582 Code(s): M54.9 - DORSALGIA, UNSPECIFIED; G89.29 - OTHER CHRONIC PAIN Status: Chronic Priority: Low Current Visit: No Qualifiers: Back pain location: back pain in unspecified location Back pain laterality: unspecified Qualified Code(s): M54.9 - Dorsalgia, unspecified; G89.29 - Other chronic pain (10) Osteoarthritis SNOMED Code(s): 079497071 Code(s): M19.90 - UNSPECIFIED OSTEOARTHRITIS, UNSPECIFIED SITE Status: Chronic Priority: Low Current Visit: No Qualifiers: Osteoarthritis location: multiple joints Osteoarthritis type: unspecified Qualified Code(s): M15.9 - Polyosteoarthritis, unspecified (11) Insomnia SNOMED Code(s): 722563109 Code(s): G47.00 - INSOMNIA, UNSPECIFIED Status: Chronic Priority: Low Current Visit: No Qualifiers: Insomnia type: unspecified Qualified Code(s): G47.00 - Insomnia, unspecified - Problem List Review Problem List Initiated/Reviewed/Updated: Yes - Assessment Assessment:: 08/23/2020 75-year-old male with a past medical history as noted above who presents to the [facility] emergency department due to hypoxia in the field and increased lower extremity edema. Referred to the internal medicine service for new congestive heart failure and treatment of hypoxia. 1. Acute hypoxic respiratory failure. Multifactorial in the setting of likely chronic obstructive pulmonary disease from long-term tobacco use, and new diagnosis of congestive heart failure. Admit to the hospitalist service. Daily weights by standing scale in the morning. Restricted sodium diet. Fluid restriction of 1.5 L/day. Lasix 40 mg IV twice daily. Echocardiogram pending. Respiratory therapy consult with DuoNebs every 4 hours as needed. Incentive spirometry encouraged. 2. New diagnosis of congestive heart failure. Expect diastolic dysfunction considering physical examination and lack of pulmonary edema on imaging. Plan as above as per Daily weights, fluid restriction and diuresis. Monitor renal function. 3. Long-term tobacco abuse. Suspect component of COPD. Not formally diagnosed in the past. We will add prednisone for 5 days. Respiratory therapy consult and duo nebs as previously mentioned. Nicotine replacement. 4. Depression. Continue home medications at regular dose. CODE STATUS: DNR/DNI. DVT prophylaxis with heparin. 08/24/2020 75-year-old male admitted for acute hypoxic respiratory failure and a likely new diagnosis of congestive heart failure. Patient reports that he has been eating a significant amount of trail mix with salted peanuts and also eats a significant amount of salt with his eggs. States his swelling has improved to his feet today. He is requiring 2 L. Per charting he is down 13 pounds. He continues utilize incentive spirometer. He is also 1/2 pack a day smoker and so there is likely a component of COPD associated. Patient likely benefit from outpatient PFT. He is receiving 5 days of prednisone and duo nebs as well. We will continue current treatment plan and monitor his labs. Will await outcome of echocardiogram. Patient will continue on sodium and fluid restrictions as ordered.Labs today show sodium of 139 potassium 4.2. Creatinine 0.7 with GFR greater than 60. Likely discharge in 1 to 2 days pending continued improvement. - Plan Plan:: Acute respiratory failure with hypoxia and hypercarbia COPD (chronic obstructive pulmonary disease) New onset of congestive heart failure * Daily weights with standing scale * I&O monitoring * Sodium restriction - 2gm * 1.5L fluid restriction * Lasix 40mg IVP BID * Echocardiogram ordered * Monitor renal function * RT consultation * Duonebs as ordered * 40mg prednisone daily for 5 days * IS * Engineer consultation Depression * Continue home medications * No acute concerns Nicotine dependence * Nicotine patch * Cessation counseling * Offer nicotine patches at discharge HLD (hyperlipidemia) HTN (hypertension) PVD (peripheral vascular disease) * No acute concerns * Monitor vital signs * Home medications as ordered Chronic back pain Osteoarthritis * No acute concerns * Tylenol as needed for pain Insomnia * No acute concerns Code status: DNR/DNI PCP: Dr. Pollack DVT prophylaxis: Heparin Disposition: Patient admitted for management of new onset CHF with exacerbation. Patient will remain admitted to the hospital for diuresis and further work-up. Likely length of stay 1-2 more days. <Yosef Singer Jr - Last Filed: 08/24/20 16:16> - Patient Data Vitals - Most Recent: Last Vital Signs Temp 98.4 F 08/24/20 04:21 Pulse 83 08/24/20 15:22 Resp 18 08/24/20 15:22 BP 119/54 L 08/24/20 15:22 Pulse Ox 89 L 08/24/20 15:22 I&O - Last 24 Hours: Intake & Output 08/24/20 08/24/20 08/24/20 06:59 14:59 22:59 Intake Total 500 180 300 Output Total 1500 3000 Balance -1000 180 -2700 Lab Results Last 24 Hours: Laboratory Results - last 24 hr 08/24/20 Range/Units 05:26 Sodium 139 (136-145) mEq/L Potassium 4.2 (3.5-5.1) mEq/L Chloride 100 (98-107) mEq/L Carbon Dioxide 37 H (21-32) mEq/L Anion Gap 6.2 (5-15) BUN 12 (7-18) mg/dL Creatinine 0.7 (0.7-1.3) mg/dL Est Cr Clr Drug Dosing 79.75 mL/min Estimated GFR (MDRD) > 60 (>60) mL/min BUN/Creatinine Ratio 17.1 (14-18) Glucose 88 (70-99) mg/dL Calcium 8.7 (8.5-10.1) mg/dL Med Orders - Current: Current Medications Acetaminophen (Acetaminophen 325 Mg Tab) 650 mg PO Q4H PRN PRN Reason: Pain (Mild 1-3)/fever Albuterol/Ipratropium (Albuterol/Ipratropium 3.0-0.5 Mg/3 Ml Neb Soln) 3 ml NEB Q4H [facility] Last Admin: 08/24/20 14:54 Dose: 3 ml Documented by: Aspirin (Aspirin 81 Mg Tab.Ec) 81 mg PO DAILY [facility] Last Admin: 08/24/20 08:40 Dose: 81 mg Documented by: Cholecalciferol (Cholecalciferol (Vitamin D3) 25 Mcg Tab) 25 mcg PO DAILY [facility] Last Admin: 08/24/20 08:40 Dose: 25 mcg Documented by: Docusate Sodium (Docusate Sodium 100 Mg Cap) 100 mg PO BID PRN PRN Reason: Constipation Ezetimibe (Ezetimibe 10 Mg Tab) 10 mg PO DAILY [facility] Last Admin: 08/24/20 08:40 Dose: 10 mg Documented by: Fish Oil (Fish Oil/[place]-3 Fatty Acids 1 Gm Cap) 1 gm PO DAILY [facility] Last Admin: 08/24/20 08:40 Dose: 1 gm Documented by: Furosemide (Furosemide 40 Mg/4 Ml Vial) 40 mg IVPUSH BIDDIURETIC [facility] Last Admin: 08/24/20 13:47 Dose: 40 mg Documented by: Heparin Sodium (Porcine) (Heparin Sodium 5,000 Units/Ml Vial) 5,000 units SUBCUT Q8H [facility] Last Admin: 08/24/20 13:43 Dose: 5,000 units Documented by: Miscellaneous Information (Remove Patch *Nicotine*) 1 ea TRDERM DAILY [facility] Last Admin: 08/24/20 08:41 Dose: 1 ea Documented by: Multivitamins/Minerals/Vitamin C (Multivitamin Tab) 1 tab PO DAILY [facility] Last Admin: 08/24/20 08:40 Dose: 1 tab Documented by: Nicotine (Nicotine 14 Mg/24 Hr Patch) 14 mg TRDERM DAILY [facility] Last Admin: 08/24/20 08:40 Dose: 14 mg Documented by: Ondansetron HCl (Ondansetron 4 Mg Tab.Dis) 4 mg PO Q4H PRN PRN Reason: nausea, able to take PO Pravastatin Sodium (Pravastatin 20 Mg Tab) 20 mg PO DAILY [facility] Last Admin: 08/24/20 08:40 Dose: 20 mg Documented by: Prednisone (Prednisone 20 Mg Tab) 40 mg PO DAILY [facility] Stop: 08/28/20 12:46 Last Admin: 08/24/20 08:40 Dose: 40 mg Documented by: Risperidone (Risperidone 1 Mg Tab) 2 mg PO BEDTIME [facility] Last Admin: 08/23/20 20:29 Dose: 2 mg Documented by: Sertraline HCl (Sertraline 50 Mg Tab) 100 mg PO BEDTIME [facility] Last Admin: 08/23/20 20:29 Dose: 100 mg Documented by: Sodium Chloride (Sodium Chloride 0.9% 10 Ml Syringe) 10 ml FLUSH ASDIRECTED PRN PRN Reason: Keep Vein Open Temazepam (Temazepam 7.5 Mg Cap) 7.5 mg PO BEDTIME PRN PRN Reason: Sleep Vitamin B Complex/Vit C/Folic Acid (Biotin/Folic Acid/Vitamin C/Vitamin B Complex Tab) 2 tab PO DAILY [facility] Last Admin: 08/24/20 08:40 Dose: 2 tab Documented by: Discontinued Medications Albuterol/Ipratropium (Albuterol/Ipratropium 3.0-0.5 Mg/3 Ml Neb Soln) 3 ml NEB Q4H PRN PRN Reason: Shortness Of Breath/wheezing Last Admin: 08/23/20 09:20 Dose: 3 ml Documented by: Albuterol/Ipratropium (Albuterol/Ipratropium 3.0-0.5 Mg/3 Ml Neb Soln) 3 ml NEB Q4H PRN PRN Reason: Shortness Of Breath/wheezing Albuterol/Ipratropium (Albuterol/Ipratropium 3.0-0.5 Mg/3 Ml Neb Soln) 3 ml NEB Q4H [facility] Furosemide (Furosemide 40 Mg/4 Ml Vial) 40 mg IVPUSH NOW ONE Stop: 08/23/20 09:09 Last Admin: 08/23/20 09:23 Dose: 40 mg Documented by: Heparin Sodium (Porcine) (Heparin Sodium 5,000 Units/Ml Vial) 5,000 units SUBCUT Q8H [facility] Last Admin: 08/23/20 13:14 Dose: Not Given Documented by: Nicotine (Nicotine 14 Mg/24 Hr Patch) 14 mg TRDERM DAILY [facility] Last Admin: 08/23/20 13:14 Dose: Not Given Documented by: Prednisone (Prednisone 20 Mg Tab) 40 mg PO DAILY [facility] Stop: 08/27/20 23:59 Last Admin: 08/23/20 13:14 Dose: Not Given Documented by: Sodium Chloride (Sodium Chloride 0.9% 10 Ml Syringe) 10 ml FLUSH ASDIRECTED PRN PRN Reason: Keep Vein Open Last Admin: 08/23/20 09:24 Dose: 10 ml Documented by: - Patient Data Lab Results Last 24 hrs: Laboratory Results - last 24 hr 08/24/20 Range/Units 05:26 Sodium 139 (136-145) mEq/L Potassium 4.2 (3.5-5.1) mEq/L Chloride 100 (98-107) mEq/L Carbon Dioxide 37 H (21-32) mEq/L Anion Gap 6.2 (5-15) BUN 12 (7-18) mg/dL Creatinine 0.7 (0.7-1.3) mg/dL Est Cr Clr Drug Dosing 79.75 mL/min Estimated GFR (MDRD) > 60 (>60) mL/min BUN/Creatinine Ratio 17.1 (14-18) Glucose 88 (70-99) mg/dL Calcium 8.7 (8.5-10.1) mg/dL Result Diagrams: 08/23/20 09:10 08/24/20 05:26 Sepsis Event Note - Focused Exam Vital Signs: Vital Signs Temp Pulse Resp BP Pulse Ox Pulse Ox 08/24/20 15:22 83 18 119/54 L 89 L 08/24/20 14:54 91 L 08/24/20 11:37 77 18 99/56 L 90 L 08/24/20 09:22 91 L 08/24/20 08:04 80 119/51 L 88 L 08/24/20 06:13 93 L 08/24/20 04:21 98.4 F 70 16 112/64 95 - My Orders Last 24 Hours: My Active Orders 08/23/20 Dinner 2 Gram Sodium Diet [DIET] 08/23/20 21:00 Sertraline [Zoloft] 100 mg PO BEDTIME risperiDONE [RisperiDAL] 2 mg PO BEDTIME 08/24/20 09:00 Aspirin [Halfprin] 81 mg PO DAILY Biotin/FA/Vit C/Vit B Complex [Nephrocaps] 2 tab PO DAILY Cholecalciferol (Vitamin D3) [Vitamin D3] 25 mcg PO DAILY Ezetimibe [Zetia] 10 mg PO DAILY Fish Oil/[place]-3 Fatty Acids [Fish Oil] 1 gm PO DAILY Multivitamins [Tab-A-[place]] 1 tab PO DAILY Pravastatin [Pravachol] 20 mg PO DAILY Remove Patch 1 ea BGM DAILY 08/25/20 06:00 BASIC METABOLIC PANEL,BMP [CHEM] DAILY 08/26/20 06:00 BASIC METABOLIC PANEL,BMP [CHEM] DAILY 08/27/20 06:00 BASIC METABOLIC PANEL,BMP [CHEM] DAILY - Plan Plan:: Case discussed in full. Agree with examination, assessment and plan. -Anish Washington Jr., DO
[2020-08-24] MEDS: risperiDONE 1 MG Tab PO SCH (20:41)
[2020-08-24] MEDS: Sertraline 50 MG Tab PO SCH (20:42)
[2020-08-24] MEDS: Temazepam 7.5 MG Cap PO PRN (23:21)
[2020-08-25] MEDS: Albuterol/Ipratropium 3.0-0.5 MG/3 ML Neb Soln NEB SCH ×6 (01:53→21:01)
[2020-08-25] MEDS: Heparin Sodium 5,000 Units/ML Vial SUBCUT SCH ×3 (05:28→21:08)
[2020-08-25] MEDS: Furosemide 40 MG/4 ML VIAL IVPUSH SCH (05:29)
[2020-08-25] MEDS: Nicotine 14 MG/24 Hr Patch TRDERM SCH (08:21)
[2020-08-25] MEDS: Multivitamin Tab PO SCH (08:28)
[2020-08-25] MEDS: Furosemide 20 MG Tab PO SCH (08:28)
[2020-08-25] MEDS: Pravastatin 20 MG Tab PO SCH (08:29)
[2020-08-25] MEDS: Cholecalciferol (Vitamin D3) 25 MCG Tab PO SCH (08:30)
[2020-08-25] MEDS: Aspirin 81 MG Tab.EC PO SCH (08:31)
[2020-08-25] MEDS: Biotin/Folic Acid/Vitamin C/Vitamin B Complex Tab PO SCH (08:31)
[2020-08-25] MEDS: Ezetimibe 10 MG Tab PO SCH (08:31)
[2020-08-25] MEDS: Fish Oil/Omega-3 Fatty Acids 1 Gm Cap PO SCH (08:31)
[2020-08-25] MEDS: predniSONE 20 MG Tab PO SCH (08:32)
[2020-08-25] MEDS: Tiotropium Bromide 4 GM Inhalation Spray (2.5mcg/1 dose; 10 doses) INH SCH (09:19)
--- NOTE | 2020-08-25 12:34 | PCM.PN ---
<Arnol Sherwood - Last Filed: 08/25/20 14:21> - General Info Date of Service: 08/25/20 Admission Dx/Problem (Free Text): Admission Diagnosis/Problem Admission Diagnosis/Problem CHF, Acute Hypoxic Respiratory Failure Functional Status: Reports: Pain Controlled, Tolerating Diet, Ambulating, Urinating, Incentive Spirometry. Denies: New Symptoms - Review of Systems General: Reports: No Symptoms. Denies: Fever, Weakness, Fatigue, Malaise, Chills HEENT: Reports: No Symptoms. Denies: Headaches, Sore Throat Pulmonary: Reports: Shortness of Breath, Cough, Sputum. Denies: Wheezing Cardiovascular: Reports: Dyspnea on Exertion, Edema. Denies: Chest Pain, Palpitations Gastrointestinal: Reports: No Symptoms. Denies: Abdominal Pain, Constipation, Diarrhea, Nausea, Vomiting Genitourinary: Reports: No Symptoms. Denies: Pain Musculoskeletal: Reports: No Symptoms Skin: Reports: No Symptoms. Denies: Cyanosis Neurological: Reports: No Symptoms. Denies: Confusion, Difficulty Walking, Gait Disturbance Psychiatric: Reports: No Symptoms - Patient Data Vitals - Most Recent: Last Vital Signs Temp 98.2 F 08/25/20 05:30 Pulse 65 08/25/20 08:07 Resp 20 08/25/20 08:07 BP 109/65 08/25/20 08:07 Pulse Ox 94 L 08/25/20 08:14 Weight - Most Recent: 137 lb 12.8 oz I&O - Last 24 Hours: Intake & Output 08/24/20 08/25/20 08/25/20 22:59 06:59 14:59 Intake Total 525 300 120 Output Total 3000 700 Balance -2475 -400 120 Lab Results Last 24 Hours: Laboratory Results - last 24 hr 08/25/20 08/25/20 Range/Units 05:33 05:33 Sodium 142 (136-145) mEq/L Potassium 3.6 (3.5-5.1) mEq/L Chloride 100 (98-107) mEq/L Carbon Dioxide 40 H (21-32) mEq/L Anion Gap 5.6 (5-15) BUN 14 (7-18) mg/dL Creatinine 0.8 (0.7-1.3) mg/dL Est Cr Clr Drug Dosing 68.36 mL/min Estimated GFR (MDRD) > 60 (>60) mL/min BUN/Creatinine Ratio 17.5 (14-18) Glucose 90 (70-99) mg/dL Calcium 9.0 (8.5-10.1) mg/dL Magnesium 1.9 (1.8-2.4) mg/dL Med Orders - Current: Current Medications Acetaminophen (Acetaminophen 325 Mg Tab) 650 mg PO Q4H PRN PRN Reason: Pain (Mild 1-3)/fever Albuterol/Ipratropium (Albuterol/Ipratropium 3.0-0.5 Mg/3 Ml Neb Soln) 3 ml NEB Q4H [facility] Last Admin: 08/25/20 09:19 Dose: 3 ml Documented by: Aspirin (Aspirin 81 Mg Tab.Ec) 81 mg PO DAILY [facility] Last Admin: 08/25/20 08:31 Dose: 81 mg Documented by: Cholecalciferol (Cholecalciferol (Vitamin D3) 25 Mcg Tab) 25 mcg PO DAILY [facility] Last Admin: 08/25/20 08:30 Dose: 25 mcg Documented by: Docusate Sodium (Docusate Sodium 100 Mg Cap) 100 mg PO BID PRN PRN Reason: Constipation Ezetimibe (Ezetimibe 10 Mg Tab) 10 mg PO DAILY [facility] Last Admin: 08/25/20 08:31 Dose: 10 mg Documented by: Fish Oil (Fish Oil/[place]-3 Fatty Acids 1 Gm Cap) 1 gm PO DAILY [facility] Last Admin: 08/25/20 08:31 Dose: 1 gm Documented by: Furosemide (Furosemide 20 Mg Tab) 20 mg PO DAILY [facility] Last Admin: 08/25/20 08:28 Dose: 20 mg Documented by: Heparin Sodium (Porcine) (Heparin Sodium 5,000 Units/Ml Vial) 5,000 units SUBCUT Q8H [facility] Last Admin: 08/25/20 05:28 Dose: 5,000 units Documented by: Miscellaneous Information (Remove Patch *Nicotine*) 1 ea TRDERM DAILY [facility] Last Admin: 08/25/20 08:21 Dose: 1 ea Documented by: Multivitamins/Minerals/Vitamin C (Multivitamin Tab) 1 tab PO DAILY [facility] Last Admin: 08/25/20 08:28 Dose: 1 tab Documented by: Nicotine (Nicotine 14 Mg/24 Hr Patch) 14 mg TRDERM DAILY [facility] Last Admin: 08/25/20 08:21 Dose: 14 mg Documented by: Ondansetron HCl (Ondansetron 4 Mg Tab.Dis) 4 mg PO Q4H PRN PRN Reason: nausea, able to take PO Pravastatin Sodium (Pravastatin 20 Mg Tab) 20 mg PO DAILY [facility] Last Admin: 08/25/20 08:29 Dose: 20 mg Documented by: Prednisone (Prednisone 20 Mg Tab) 40 mg PO DAILY [facility] Stop: 08/28/20 12:46 Last Admin: 08/25/20 08:32 Dose: 40 mg Documented by: Risperidone (Risperidone 1 Mg Tab) 2 mg PO BEDTIME [facility] Last Admin: 08/24/20 20:41 Dose: 2 mg Documented by: Sertraline HCl (Sertraline 50 Mg Tab) 100 mg PO BEDTIME [facility] Last Admin: 08/24/20 20:42 Dose: 100 mg Documented by: Sodium Chloride (Sodium Chloride 0.9% 10 Ml Syringe) 10 ml FLUSH ASDIRECTED PRN PRN Reason: Keep Vein Open Temazepam (Temazepam 7.5 Mg Cap) 7.5 mg PO BEDTIME PRN PRN Reason: Sleep Last Admin: 08/24/20 23:21 Dose: 7.5 mg Documented by: Tiotropium [place] (Tiotropium [place] 4 Gm Inhalation [place] (2.5mcg/1 Dose; 10 Doses)) 0 gm INH DAILY [facility] Last Admin: 08/25/20 09:19 Dose: 2 puff Documented by: Vitamin B Complex/Vit C/Folic Acid (Biotin/Folic Acid/Vitamin C/Vitamin B Complex Tab) 2 tab PO DAILY [facility] Last Admin: 08/25/20 08:31 Dose: 2 tab Documented by: Discontinued Medications Albuterol/Ipratropium (Albuterol/Ipratropium 3.0-0.5 Mg/3 Ml Neb Soln) 3 ml NEB Q4H PRN PRN Reason: Shortness Of Breath/wheezing Last Admin: 08/23/20 09:20 Dose: 3 ml Documented by: Albuterol/Ipratropium (Albuterol/Ipratropium 3.0-0.5 Mg/3 Ml Neb Soln) 3 ml NEB Q4H PRN PRN Reason: Shortness Of Breath/wheezing Albuterol/Ipratropium (Albuterol/Ipratropium 3.0-0.5 Mg/3 Ml Neb Soln) 3 ml NEB Q4H [facility] Furosemide (Furosemide 40 Mg/4 Ml Vial) 40 mg IVPUSH NOW ONE Stop: 08/23/20 09:09 Last Admin: 08/23/20 09:23 Dose: 40 mg Documented by: Furosemide (Furosemide 40 Mg/4 Ml Vial) 40 mg IVPUSH BIDDIURETIC [facility] Last Admin: 08/25/20 05:29 Dose: 40 mg Documented by: Heparin Sodium (Porcine) (Heparin Sodium 5,000 Units/Ml Vial) 5,000 units SUBCUT Q8H [facility] Last Admin: 08/23/20 13:14 Dose: Not Given Documented by: Nicotine (Nicotine 14 Mg/24 Hr Patch) 14 mg TRDERM DAILY [facility] Last Admin: 08/23/20 13:14 Dose: Not Given Documented by: Prednisone (Prednisone 20 Mg Tab) 40 mg PO DAILY [facility] Stop: 08/27/20 23:59 Last Admin: 08/23/20 13:14 Dose: Not Given Documented by: Sodium Chloride (Sodium Chloride 0.9% 10 Ml Syringe) 10 ml FLUSH ASDIRECTED PRN PRN Reason: Keep Vein Open Last Admin: 08/23/20 09:24 Dose: 10 ml Documented by: - Exam Quality Assessment: Supplemental Oxygen (2L ), DVT Prophylaxis. No: Urine Catheter General: Alert, Oriented, Cooperative, No Acute Distress HEENT: Pupils Equal, Pupils Reactive, Mucous Membr. Moist/[place] Neck: Supple, Trachea Midline Lungs: Normal Respiratory Effort, Decreased Breath Sounds, Crackles, Wheezing Cardiovascular: Regular Rate, Regular Rhythm GI/Abdominal Exam: Normal Bowel Sounds, Soft, Non-Tender, No Distention (Male) Exam: Deferred Back Exam: Normal Inspection, Full Range of Motion Extremities: Normal Inspection, Normal Range of Motion, Non-Tender, Normal Cap illary Refill, Pedal Edema (greatly improved - 1+ ) Peripheral Pulses: 2+: Radial (L), Radial (R), Dorsalis Pedis (L), Dorsalis Pedis (R) Skin: Warm, Dry, Intact Neurological: No New Focal Deficit Psy/Mental Status: Alert, Normal Affect, Normal Mood - Patient Data Lab Results Last 24 hrs: Laboratory Results - last 24 hr 08/25/20 08/25/20 Range/Units 05:33 05:33 Sodium 142 (136-145) mEq/L Potassium 3.6 (3.5-5.1) mEq/L Chloride 100 (98-107) mEq/L Carbon Dioxide 40 H (21-32) mEq/L Anion Gap 5.6 (5-15) BUN 14 (7-18) mg/dL Creatinine 0.8 (0.7-1.3) mg/dL Est Cr Clr Drug Dosing 68.36 mL/min Estimated GFR (MDRD) > 60 (>60) mL/min BUN/Creatinine Ratio 17.5 (14-18) Glucose 90 (70-99) mg/dL Calcium 9.0 (8.5-10.1) mg/dL Magnesium 1.9 (1.8-2.4) mg/dL Result Diagrams: 08/23/20 09:10 08/25/20 05:33 Sepsis Event Note - Evaluation Sepsis Screening Result: No Definite Risk - Focused Exam Vital Signs: Vital Signs Temp Pulse Resp BP Pulse Ox Pulse Ox 08/25/20 08:14 94 L 08/25/20 08:07 65 20 109/65 92 L 08/25/20 05:57 96 08/25/20 05:30 98.2 F 76 16 117/59 L 94 L - Problem List & Annotations (1) New onset of congestive heart failure SNOMED Code(s): 59298276 Code(s): I50.9 - HEART FAILURE, UNSPECIFIED Status: Suspected Priority: High Current Visit: Yes (2) Depression SNOMED Code(s): 67864403 Code(s): F32.9 - MAJOR DEPRESSIVE DISORDER, SINGLE EPISODE, UNSPECIFIED Status: Chronic Priority: Medium Current Visit: Yes Qualifiers: Depression Type: other depression Qualified Code(s): F32.89 - Other specified depressive episodes (3) Acute respiratory failure with hypoxia and hypercarbia SNOMED Code(s): 339217037 Code(s): J96.01 - ACUTE RESPIRATORY FAILURE WITH HYPOXIA; J96.02 - ACUTE RESPIRATORY FAILURE WITH HYPERCAPNIA Status: Acute Priority: High Current Visit: Yes (4) COPD (chronic obstructive pulmonary disease) SNOMED Code(s): 73315309 Code(s): J44.9 - CHRONIC OBSTRUCTIVE PULMONARY DISEASE, UNSPECIFIED Status: Chronic Priority: Medium Current Visit: Yes Qualifiers: 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(s): J43.1 - Panlobular emphysema (5) Nicotine dependence SNOMED Code(s): 82285343 Code(s): F17.200 - NICOTINE DEPENDENCE, UNSPECIFIED, UNCOMPLICATED Status: Chronic Priority: High Current Visit: Yes Qualifiers: Nicotine product type: cigarettes Substance use status: unspecified nicotine-induced disorder Qualified Code(s): F17.219 - Nicotine dependence, cigarettes, with unspecified nicotine-induced disorders (6) HLD (hyperlipidemia) SNOMED Code(s): 64937110 Code(s): E78.5 - HYPERLIPIDEMIA, UNSPECIFIED Status: Chronic Priority: Low Current Visit: No Qualifiers: Hyperlipidemia type: unspecified Qualified Code(s): E78.5 - Hyperlipidemia, unspecified (7) HTN (hypertension) SNOMED Code(s): 00984265 Code(s): I10 - ESSENTIAL (PRIMARY) HYPERTENSION Status: Chronic Priority: Low Current Visit: No Qualifiers: Hypertension type: unspecified Qualified Code(s): I10 - Essential (primary) hypertension (8) PVD (peripheral vascular disease) SNOMED Code(s): 513224201 Code(s): I73.9 - PERIPHERAL VASCULAR DISEASE, UNSPECIFIED Status: Chronic Priority: Low Current Visit: No (9) Chronic back pain SNOMED Code(s): 797466022 Code(s): M54.9 - DORSALGIA, UNSPECIFIED; G89.29 - OTHER CHRONIC PAIN S tatus: Chronic Priority: Low Current Visit: No Qualifiers: Back pain location: back pain in unspecified location Back pain laterality: unspecified Qualified Code(s): M54.9 - Dorsalgia, unspecified; G89.29 - Other chronic pain (10) Osteoarthritis SNOMED Code(s): 627899635 Code(s): M19.90 - UNSPECIFIED OSTEOARTHRITIS, UNSPECIFIED SITE Status: Chronic Priority: Low Current Visit: No Qualifiers: Osteoarthritis location: multiple joints Osteoarthritis type: unspecified Qualified Code(s): M15.9 - Polyosteoarthritis, unspecified (11) Insomnia SNOMED Code(s): 062641540 Code(s): G47.00 - INSOMNIA, UNSPECIFIED Status: Chronic Priority: Low Current Visit: No Qualifiers: Insomnia type: unspecified Qualified Code(s): G47.00 - Insomnia, unspecified (12) Pedal edema SNOMED Code(s): 946361666 Code(s): R60.0 - LOCALIZED EDEMA Status: Acute Priority: High Current Visit: Yes - Problem List Review Problem List Initiated/Reviewed/Updated: Yes - My Orders Last 24 Hours: My Active Orders 08/25/20 09:00 Furosemide [Lasix] 20 mg PO DAILY Tiotropium [place] [Spiriva Respimat] See Dose Instructions INH DAILY 08/26/20 05:11 MAGNESIUM [CHEM] AM 08/27/20 05:11 MAGNESIUM [CHEM] AM 08/28/20 05:11 MAGNESIUM [CHEM] AM - Assessment Assessment:: 08/23/2020 75-year-old male with a past medical history as noted above who presents to the [facility] emergency department due to hypoxia in the field and increased lower extremity edema. Referred to the internal medicine service for new congestive heart failure and treatment of hypoxia. 1. Acute hypoxic respiratory failure. Multifactorial in the setting of likely chronic obstructive pulmonary disease from long-term tobacco use, and new diagnosis of congestive heart failure. Admit to the hospitalist service. Daily weights by standing scale in the morning. Restricted sodium diet. Fluid restriction of 1.5 L/day. Lasix 40 mg IV twice daily. Echocardiogram pending. Respiratory therapy consult with Jake every 4 hours as needed. Incentive spirometry encouraged. 2. New diagnosis of congestive heart failure. Expect diastolic dysfunction considering physical examination and lack of pulmonary edema on imaging. Plan as above as per Daily weights, fluid restriction and diuresis. Monitor renal function. 3. Long-term tobacco abuse. Suspect component of COPD. Not formally diagnosed in the past. We will add prednisone for 5 days. Respiratory therapy consult and duo nebs as previously mentioned. Nicotine replacement. 4. Depression. Continue home medications at regular dose. CODE STATUS: DNR/DNI. DVT prophylaxis with heparin. 08/24/2020 75-year-old male admitted for acute hypoxic respiratory failure and a likely new diagnosis of congestive heart failure. Patient reports that he has been eating a significant amount of trail mix with salted peanuts and also eats a significant amount of salt with his eggs. States his swelling has improved to his feet today. He is requiring 2 L. Per charting he is down 13 pounds. He continues utilize incentive spirometer. He is also 1/2 pack a day smoker and so there is likely a component of COPD associated. Patient likely benefit from outpatient PFT. He is receiving 5 days of prednisone and duo nebs as well. We will continue current treatment plan and monitor his labs. Will await outcome of echocardiogram. Patient will continue on sodium and fluid restrictions as ordered.Labs today show sodium of 139 potassium 4.2. Creatinine 0.7 with GFR greater than 60. Likely discharge in 1 to 2 days pending continued improvement. 08/25/2020 75-year-old male admitted due to acute hypoxemic respiratory failure with suspected CHF. Patient continues to require 2 L of oxygen. He has had occasional wheezes noted on auscultation. HCO3 has been rising and it is felt the patient likely has met his dry weight. His a edema has greatly improved. He reports a decrease in urine output. We will therefore switch him to 20 mg p.o. daily Lasix. Echocardiogram returned from 08/24/2020 showin. Left ventricular ejection fraction, by visual estimation, is 60 to 65%. 2. Normal left ventricular systolic function. 3. Normal pattern of left ventricular diastolic filling. 4. Normal right ventricular systolic function. 5. Right ventricular size is mildly enlarged. 6. Mild [place] dilated left atrium. 7. Mildly dilated right atrium. 8. There is mild aortic valve sclerosis without stenosis. 9. Trace mitral valve regurgitation. 10. Mild tricuspid valve regurgitation. 11. The right ventricular systolic pressure is moderately elevated at 44 mmHg. 12. No regional wall motion abnormalities. Because of his results we will continue 2 g sodium restriction however we will discontinue fluid restriction. Patient will definitely need a PFT after discharge. In the meantime we will start Spiriva daily. He may need to go home on oxygen. Likely discharge tomorrow pending continued stability/improvement. - Plan Plan:: Acute respiratory failure with hypoxia and hypercarbia COPD (chronic obstructive pulmonary disease) New onset of congestive heart failure Pedal edema * Daily weights with standing scale * I&O monitoring * Sodium restriction - 2gm * Will discontinue fluid restriction * Stop IV lasix and start 20mg PO lasix daily * Echocardiogram obtained as noted * Monitor renal function * RT consultation * Duonebs as ordered * 40mg prednisone daily for 5 days * IS * Forms Builder consultation * Start Spiriva daily * Will need PFT outpatient after discharge Depression * Continue home medications * No acute concerns Nicotine dependence * Nicotine patch * Cessation counseling * Offer nicotine patches at discharge HLD (hyperlipidemia) HTN (hypertension) PVD (peripheral vascular disease) * No acute concerns * Monitor vital signs * Home medications as ordered Chronic back pain Osteoarthritis * No acute concerns * Tylenol as needed for pain Insomnia * No acute concerns Code status: DNR/DNI PCP: Dr. Pollack DVT prophylaxis: Heparin Disposition: Patient admitted for management of new onset CHF with exacerbation. Patient will remain admitted to the hospital for medication adjustment and further work-up. Likely discharge in 24 hours. <Yosef Singer Jr - Last Filed: 08/25/20 16:55> - Patient Data Vitals - Most Recent: Last Vital Signs Temp 98.2 F 08/25/20 11:18 Pulse 71 08/25/20 11:18 Resp 20 08/25/20 11:18 BP 103/48 L 08/25/20 11:18 Pulse Ox 92 L 08/25/20 14:36 I&O - Last 24 Hours: Intake & Output 08/25/20 08/25/20 08/25/20 06:59 14:59 22:59 Intake Total 300 120 440 Output Total 700 Balance -400 120 440 Lab Results Last 24 Hours: Laboratory Results - last 24 hr 08/25/20 08/25/20 Range/Units 05:33 05:33 Sodium 142 (136-145) mEq/L Potassium 3.6 (3.5-5.1) mEq/L Chloride 100 (98-107) mEq/L Carbon Dioxide 40 H (21-32) mEq/L Anion Gap 5.6 (5-15) BUN 14 (7-18) mg/dL Creatinine 0.8 (0.7-1.3) mg/dL Est Cr Clr Drug Dosing 68.36 mL/min Estimated GFR (MDRD) > 60 (>60) mL/min BUN/Creatinine Ratio 17.5 (14-18) Glucose 90 (70-99) mg/dL Calcium 9.0 (8.5-10.1) mg/dL Magnesium 1.9 (1.8-2.4) mg/dL Med Orders - Current: Current Medications Acetaminophen (Acetaminophen 325 Mg Tab) 650 mg PO Q4H PRN PRN Reason: Pain (Mild 1-3)/fever Albuterol/Ipratropium (Albuterol/Ipratropium 3.0-0.5 Mg/3 Ml Neb Soln) 3 ml NEB Q4H [facility] Last Admin: 08/25/20 14:35 Dose: 3 ml Documented by: Aspirin (Aspirin 81 Mg Tab.Ec) 81 mg PO DAILY [facility] Last Admin: 08/25/20 08:31 Dose: 81 mg Documented by: Cholecalciferol (Cholecalciferol (Vitamin D3) 25 Mcg Tab) 25 mcg PO DAILY [facility] Last Admin: 08/25/20 08:30 Dose: 25 mcg Documented by: Docusate Sodium (Docusate Sodium 100 Mg Cap) 100 mg PO BID PRN PRN Reason: Constipation Ezetimibe (Ezetimibe 10 Mg Tab) 10 mg PO DAILY [facility] Last Admin: 08/25/20 08:31 Dose: 10 mg Documented by: Fish Oil (Fish Oil/[place]-3 Fatty Acids 1 Gm Cap) 1 gm PO DAILY [facility] Last Admin: 08/25/20 08:31 Dose: 1 gm Documented by: Furosemide (Furosemide 20 Mg Tab) 20 mg PO DAILY [facility] Last Admin: 08/25/20 08:28 Dose: 20 mg Documented by: Heparin Sodium (Porcine) (Heparin Sodium 5,000 Units/Ml Vial) 5,000 units SUBCUT Q8H [facility] Last Admin: 08/25/20 12:36 Dose: 5,000 units Documented by: Miscellaneous Information (Remove Patch *Nicotine*) 1 ea TRDERM DAILY [facility] Last Admin: 08/25/20 08:21 Dose: 1 ea Documented by: Multivitamins/Minerals/Vitamin C (Multivitamin Tab) 1 tab PO DAILY [facility] Last Admin: 08/25/20 08:28 Dose: 1 tab Documented by: Nicotine (Nicotine 14 Mg/24 Hr Patch) 14 mg TRDERM DAILY [facility] Last Admin: 08/25/20 08:21 Dose: 14 mg Documented by: Ondansetron HCl (Ondansetron 4 Mg Tab.Dis) 4 mg PO Q4H PRN PRN Reason: nausea, able to take PO Pravastatin Sodium (Pravastatin 20 Mg Tab) 20 mg PO DAILY [facility] Last Admin: 08/25/20 08:29 Dose: 20 mg Documented by: Prednisone (Prednisone 20 Mg Tab) 40 mg PO DAILY [facility] Stop: 08/28/20 12:46 Last Admin: 08/25/20 08:32 Dose: 40 mg Documented by: Risperidone (Risperidone 1 Mg Tab) 2 mg PO BEDTIME [facility] Last Admin: 08/24/20 20:41 Dose: 2 mg Documented by: Sertraline HCl (Sertraline 50 Mg Tab) 100 mg PO BEDTIME [facility] Last Admin: 08/24/20 20:42 Dose: 100 mg Documented by: Sodium Chloride (Sodium Chloride 0.9% 10 Ml Syringe) 10 ml FLUSH ASDIRECTED PRN PRN Reason: Keep Vein Open Temazepam (Temazepam 7.5 Mg Cap) 7.5 mg PO BEDTIME PRN PRN Reason: Sleep Last Admin: 08/24/20 23:21 Dose: 7.5 mg Documented by: Tiotropium [place] (Tiotropium [place] 4 Gm Inhalation [place] (2.5mcg/1 Dose; 10 Doses)) 0 gm INH DAILY [facility] Last Admin: 08/25/20 09:19 Dose: 2 puff Documented by: Vitamin B Complex/Vit C/Folic Acid (Biotin/Folic Acid/Vitamin C/Vitamin B Complex Tab) 2 tab PO DAILY [facility] Last Admin: 08/25/20 08:31 Dose: 2 tab Documented by: Discontinued Medications Albuterol/Ipratropium (Albuterol/Ipratropium 3.0-0.5 Mg/3 Ml Neb Soln) 3 ml NEB Q4H PRN PRN Reason: Shortness Of Breath/wheezing Last Admin: 08/23/20 09:20 Dose: 3 ml Documented by: Albuterol/Ipratropium (Albuterol/Ipratropium 3.0-0.5 Mg/3 Ml Neb Soln) 3 ml NEB Q4H PRN PRN Reason: Shortness Of Breath/wheezing Albuterol/Ipratropium (Albuterol/Ipratropium 3.0-0.5 Mg/3 Ml Neb Soln) 3 ml NEB Q4H [place] Furosemide (Furosemide 40 Mg/4 Ml Vial) 40 mg IVPUSH NOW ONE Stop: 08/23/20 09:09 Last Admin: 08/23/20 09:23 Dose: 40 mg Documented by: Furosemide (Furosemide 40 Mg/4 Ml Vial) 40 mg IVPUSH BIDDIURETIC [facility] Last Admin: 08/25/20 05:29 Dose: 40 mg Documented by: Heparin Sodium (Porcine) (Heparin Sodium 5,000 Units/Ml Vial) 5,000 units SUBCUT Q8H [place] Last Admin: 08/23/20 13:14 Dose: Not Given Documented by: Nicotine (Nicotine 14 Mg/24 Hr Patch) 14 mg TRDERM DAILY [facility] Last Admin: 08/23/20 13:14 Dose: Not Given Documented by: Prednisone (Prednisone 20 Mg Tab) 40 mg PO DAILY [facility] Stop: 08/27/20 23:59 Last Admin: 08/23/20 13:14 Dose: Not Given Documented by: Sodium Chloride (Sodium Chloride 0.9% 10 Ml Syringe) 10 ml FLUSH ASDIRECTED PRN PRN Reason: Keep Vein Open Last Admin: 08/23/20 09:24 Dose: 10 ml Documented by: - Patient Data Lab Results Last 24 hrs: Laboratory Results - last 24 hr 08/25/20 08/25/20 Range/Units 05:33 05:33 Sodium 142 (136-145) mEq/L Potassium 3.6 (3.5-5.1) mEq/L Chloride 100 (98-107) mEq/L Carbon Dioxide 40 H (21-32) mEq/L Anion Gap 5.6 (5-15) BUN 14 (7-18) mg/dL Creatinine 0.8 (0.7-1.3) mg/dL Est Cr Clr Drug Dosing 68.36 mL/min Estimated GFR (MDRD) > 60 (>60) mL/min BUN/Creatinine Ratio 17.5 (14-18) Glucose 90 (70-99) mg/dL Calcium 9.0 (8.5-10.1) mg/dL Magnesium 1.9 (1.8-2.4) mg/dL Result Diagrams: 08/23/20 09:10 08/25/20 05:33 Sepsis Event Note - Focused Exam Vital Signs: Vital Signs Temp Pulse Resp BP Pulse Ox Pulse Ox 08/25/20 14:36 92 L 08/25/20 11:18 98.2 F 71 20 103/48 L 92 L 08/25/20 08:14 94 L 08/25/20 08:07 65 20 109/65 92 L 08/25/20 05:57 96 08/25/20 05:30 98.2 F 76 16 117/59 L 94 L - My Orders Last 24 Hours: My Active Orders 08/26/20 06:00 BASIC METABOLIC PANEL,BMP [CHEM] DAILY 08/27/20 06:00 BASIC METABOLIC PANEL,BMP [CHEM] DAILY - Plan Plan:: Case discussed in full. Agree with evaluation, assessment and plan. -Anish Washington Jr., DO
[2020-08-25] MEDS: Sertraline 50 MG Tab PO SCH (21:08)
[2020-08-25] MEDS: risperiDONE 1 MG Tab PO SCH (21:08)
[2020-08-25] MEDS: Temazepam 7.5 MG Cap PO PRN (21:09)
[2020-08-26] MEDS: Albuterol/Ipratropium 3.0-0.5 MG/3 ML Neb Soln NEB SCH ×4 (01:53→13:48)
[2020-08-26] MEDS: Heparin Sodium 5,000 Units/ML Vial SUBCUT SCH (05:47)
[2020-08-26] MEDS: Ezetimibe 10 MG Tab PO SCH (08:18)
[2020-08-26] MEDS: Cholecalciferol (Vitamin D3) 25 MCG Tab PO SCH (08:18)
[2020-08-26] MEDS: Furosemide 20 MG Tab PO SCH (08:18)
[2020-08-26] MEDS: Fish Oil/Omega-3 Fatty Acids 1 Gm Cap PO SCH (08:18)
[2020-08-26] MEDS: Pravastatin 20 MG Tab PO SCH (08:18)
[2020-08-26] MEDS: predniSONE 20 MG Tab PO SCH (08:18)
[2020-08-26] MEDS: Multivitamin Tab PO SCH (08:18)
[2020-08-26] MEDS: Aspirin 81 MG Tab.EC PO SCH (08:19)
[2020-08-26] MEDS: Nicotine 14 MG/24 Hr Patch TRDERM SCH (08:19)
[2020-08-26] MEDS: Biotin/Folic Acid/Vitamin C/Vitamin B Complex Tab PO SCH (08:19)
[2020-08-26] MEDS: Tiotropium Bromide 4 GM Inhalation Spray (2.5mcg/1 dose; 10 doses) INH SCH (09:39)
--- NOTE | 2020-08-26 11:17 | PCM.DCSUM1 ---
<Arnol Sherwood - Last Filed: 08/26/20 12:13> Discharge Summary - Hospital Course HPI Initial Comments: The patient is a 75-year-old male with a past medical history as listed below who presents to the [facility] emergency department from the local outpatient clinic due to increased shortness of breath and increased lower extremity edema. Patient states that he was in his usual state of health up until a couple of months ago when he started noticing that with activity he became more short of breath. This has continued and has progressed to the point where it has affected his activities of daily living. He cannot walk across the house without becoming short of breath to the point where he has to sit down and catch his breath. He denies any orthopnea, or paroxysmal nocturnal dyspnea. In addition, within the past 2 weeks he has noted increased lower extremity edema starting in the feet and increasing approximately up to the midshin. He denies any skin tightness, skin changes or blistering. He has appreciated a cough but it has been nonproductive. No recent sick contacts or recent travel. The patient does not endorse a history of heart failure. He states that he has been smoking for about 25 years; at least 1/2 pack/day. He presented to the outpatient clinic this morning mostly due to the increasing lower extremity edema. He was sent to the emergency department when he was found to be exquisitely hypoxic and the high 60s and low 70s percentile for oxygen saturation. This was remedied by nasal cannula oxygen once he presented to the emergency department. He was placed on a simple mask by EMS during transport. Since being on 2 to 3 L of nasal cannula supplemental oxygen, he has been saturating between 88 and 94%. He has been comfortable. Work-up in the emergency department was notable for decreased breath sounds both with inspiratory and expiratory effort. Lower extremity edema was notable. Chest x-ray showed large lung volumes but not with overt CHF. Beta natruretic peptide was increased; upwards 3500. Patient was referred to the internal medicine service for management of acute hypoxic respiratory failure and new CHF. A 14 point review of systems was reviewed with the patient entirely and only pertinent for the above information. CODE STATUS: Reviewed and he wishes to be DNR/DNI. Diagnosis: Stroke: No - Discharge Data Discharge Date: 08/26/20 (Admit date: 08/23/2020) Discharge Disposition: Home, Self-Care 01 Condition: Good - Referral to Home Health Primary Care Physician: Chelsie Pollack MD - Discharge Diagnosis/Problem(s) (1) New onset of congestive heart failure SNOMED Code(s): 11310764 ICD Code: I50.9 - HEART FAILURE, UNSPECIFIED Status: Suspected Priority: High (2) Depression SNOMED Code(s): 24996502 ICD Code: F32.9 - MAJOR DEPRESSIVE DISORDER, SINGLE EPISODE, UNSPECIFIED Status: Chronic Priority: Medium Qualifiers: Depression Type: other depression Qualified Code(s): F32.89 - Other specified depressive episodes (3) Acute respiratory failure with hypoxia and hypercarbia SNOMED Code(s): 651841145 ICD Code: J96.01 - ACUTE RESPIRATORY FAILURE WITH HYPOXIA; J96.02 - ACUTE RESPIRATORY FAILURE WITH HYPERCAPNIA Status: Acute Priority: High (4) COPD (chronic obstructive pulmonary disease) SNOMED Code(s): 83265230 ICD Code: J44.9 - CHRONIC OBSTRUCTIVE PULMONARY DISEASE, UNSPECIFIED Status: Chronic Priority: Medium Qualifiers: 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(s): J43.1 - Panlobular emphysema (5) Nicotine dependence SNOMED Code(s): 59069277 ICD Code: F17.200 - NICOTINE DEPENDENCE, UNSPECIFIED, UNCOMPLICATED Status: Chronic Priority: High Qualifiers: Nicotine product type: cigarettes Substance use status: unspecified nicotine-induced disorder Qualified Code(s): F17.219 - Nicotine dependence, cigarettes, with unspecified nicotine-induced disorders (6) HLD (hyperlipidemia) SNOMED Code(s): 08465151 ICD Code: E78.5 - HYPERLIPIDEMIA, UNSPECIFIED Status: Chronic Priority: Low Qualifiers: Hyperlipidemia type: unspecified Qualified Code(s): E78.5 - Hyperlipidemia, unspecified (7) HTN (hypertension) SNOMED Code(s): 84707036 ICD Code: I10 - ESSENTIAL (PRIMARY) HYPERTENSION Status: Chronic Priority: Low Qualifiers: Hypertension type: unspecified Qualified Code(s): I10 - Essential (primary) hypertension (8) PVD (peripheral vascular disease) SNOMED Code(s): 626729209 ICD Code: I73.9 - PERIPHERAL VASCULAR DISEASE, UNSPECIFIED Status: Chronic Priority: Low (9) Chronic back pain SNOMED Code(s): 260845338 ICD Code: M54.9 - DORSALGIA, UNSPECIFIED; G89.29 - OTHER CHRONIC PAIN Status: Chronic Priority: Low Qualifiers: Back pain location: back pain in unspecified location Back pain laterality: unspecified Qualified Code(s): M54.9 - Dorsalgia, unspecified; G89.29 - Other chronic pain (10) Osteoarthritis SNOMED Code(s): 649216118 ICD Code: M19.90 - UNSPECIFIED OSTEOARTHRITIS, UNSPECIFIED SITE Status: Chronic Priority: Low Qualifiers: Osteoarthritis location: multiple joints Osteoarthritis type: unspecified Qualified Code(s): M15.9 - Polyosteoarthritis, unspecified (11) Insomnia SNOMED Code(s): 782234638 ICD Code: G47.00 - INSOMNIA, UNSPECIFIED Status: Chronic Priority: Low Qualifiers: Insomnia type: unspecified Qualified Code(s): G47.00 - Insomnia, unspecified (12) Pedal edema SNOMED Code(s): 676797788 ICD Code: R60.0 - LOCALIZED EDEMA Status: Acute Priority: High - Patient Summary/Data Consults: Consultations 08/23/20 11:10 Respiratory Care Assess and Treatment [CONS] Routine 08/24/20 09:27 Consult to Gas Operations Superintendent [CONS] Routine Labs Pending at D/C: None. Recommended Follow-up Testing/Procedures: Recommend follow-up with primary care provider within 7 to 10 days of discharge, sooner if needed. -Recommend repeat CBC, CMP, and magnesium at that visit. -Recommend patient obtain outpatient PFT after symptoms resolved. -Patient instructed to weigh himself daily and keep a journal of this. Please review weight journal. -Patient was started on Lasix daily at discharge. Recommend reviewing renal status and follow-up. -Patient was discharged on 2 L home oxygen. -Patient requested smoking cessation patches at discharge. Please review this with patient as he will likely need more patches in follow-up. Hospital Course: This is a 75-year-old male who presented to emergency department with worsening edema and hypoxia. Was noted to have saturations in the 60s and 70s in the ED. he was started on twice daily IV push Lasix and was very responsive to diuretics. He was also placed on a sodium and fluid restriction. Echocardiogram was obtained on 08/24/2020 and showed: 1. Left ventricular ejection fraction, by visual estimation, is 60 to 65%. 2. Normal left ventricular systolic function. 3. Normal pattern of left ventricular diastolic filling. 4. Normal right ventricular systolic function. 5. Right ventricular size is mildly enlarged. 6. Mild Endy dilated left atrium. 7. Mildly dilated right atrium. 8. There is mild aortic valve sclerosis without stenosis. 9. Trace mitral valve regurgitation. 10. Mild tricuspid valve regurgitation. 11. The right ventricular systolic pressure is moderately elevated at 44 mmHg. 12. No regional wall motion abnormalities. Because of this fluid restriction was stopped and he was decreased to 20 mg daily Lasix p.o. He did lose over 20 pounds throughout the course of his stay. He is a long-term half pack a day smoker and he was receiving nicotine patches while here. Suspect there is a component of COPD to his respiratory issues as well and he is started on 40 mg daily prednisone, which will be continued for a total of 5 days of treatment. He was utilizing incentive spirometry and was instructed to continue utilizing this for 1 to 2 weeks or until symptoms resolve. Recommend patient obtain a outpatient PFT after discharge once symptoms resolve. He was started on daily Spiriva. Overall he was responding quite well to treatment however he continued to require oxygen. Respiratory therapy did see him and he was qualified for 2 L at all times via nasal cannula. Order was sent for this. He did see our dietitian for CHF education and to discuss limiting salt, as he reports he has been taking quite a bit lately. He will be discharged today. Recommend follow- up within 7 to 10 days of discharge, sooner if needed. Recommend repeat CBC, CMP, and magnesium at that time. He was instructed to weigh himself daily and record this in a journal, bring this with to all medical appointments. He was given a prescription for 2 puffs of Spiriva daily, as needed albuterol inhaler, 20 mg daily Lasix, and 40 mg daily nicotine patch. We did discuss resources and he was counseled on smoking cessation. 40 mg daily nicotine patch was prescribed and PCP will need to follow-up with this in the future as patient reports he would like to stop smoking. He was also prescribed 3 more days of 40 mg daily prednisone. He was directed to contact his primary care provider return the emergency room should symptoms return or worsen. Discharged home today. - Patient Instructions Diet: Low Sodium, GI Soft/Low Residue/Low Fiber Activity: As Tolerated Driving: Do Not Drive (today ) Showering/Bathing: May Shower Notify Provider of: Fever, Increased Pain, Nausea and/or Vomiting Other/Special Instructions: Follow-up with primary care provider within 7 to 10 days of discharge, sooner if needed. Avoid salt if possible. Try and limit yourself to 2grams of salt per day. Wear your oxygen as directed. You should wear 2L at all times. Weight yourself daily and record this in a journal. Bring this journal with to all medical appointments. Contact your primary care provider should you notice a weight gain greater than 3 pounds in 1 day or 5 pounds in 1 week. Take all new medications as prescribed. Resume home medications as directed. Continue to utilize your incentive spirometer (clear/blue device you inhale through) for 1 to 2 weeks or until symptoms develop. Recommend you obtain a pulmonary function test outpatient. You may discuss this with Dr. Pollack who can help you set this up. Should symptoms return or worsen contact primary care provider or return the emergency room. - Discharge Plan *PRESCRIPTION DRUG MONITORING PROGRAM REVIEWED*: Not Applicable *COPY OF PRESCRIPTION DRUG MONITORING REPORT IN PATIENT DIONICIO: Not Applicable Prescriptions/Med Rec: Albuterol Sulfate [Albuterol Sulfate HFA] 8.5 gm INH Q2H PRN #1 inhaler PRN Reason: Shortness Of Breath Nicotine [Habitrol] 14 mg TOP DAILY #20 patch Furosemide [Lasix] 20 mg PO DAILY #30 tablet predniSONE 40 mg PO DAILY #3 tablet Tiotropium [place] [Spiriva Respimat] 2 puff INH DAILY #3 inhaler Tobacco Cessation Medication: Prescription Given Home Medications: Home Meds Aspirin [Lo-Dose Aspirin EC] 81 mg PO DAILY 08/23/20 [History] Cholecalciferol (Vitamin D3) [Vitamin D3] 25 mcg PO DAILY 08/23/20 [History] ClonazePAM [KlonoPIN] 1 mg PO BEDTIME 08/23/20 [History] Ezetimibe [Zetia] 10 mg PO DAILY 08/23/20 [History] Fish Oil/Borage/Flax/Om3,6,9 1 [Kennard 3-6-9 Complex Softgel] 300 mg PO BID 08/23/20 [History] Multivitamin with Minerals [Multiple Vitamin] 1 cap PO DAILY 08/23/20 [History] Pravastatin [Pravachol] 20 mg PO DAILY 08/23/20 [History] Sertraline [Zoloft] 100 mg PO BEDTIME 08/23/20 [History] Vitamin B Complex 2 tab PO DAILY 08/23/20 [History] risperiDONE [Risperdal] 2 mg PO BEDTIME 08/23/20 [History] Albuterol Sulfate [Albuterol Sulfate HFA] 8.5 gm INH Q2H PRN #1 inhaler 08/26/20 [Rx] Furosemide [Lasix] 20 mg PO DAILY #30 tablet 08/26/20 [Rx] Nicotine [Habitrol] 14 mg TOP DAILY #20 patch 08/26/20 [Rx] Tiotropium [place] [Spiriva Respimat] 2 puff INH DAILY #3 inhaler 08/26/20 [Rx] predniSONE 40 mg PO DAILY #3 tablet 08/26/20 [Rx] Oxygen Therapy Mode: Nasal Cannula Oxygen Flow Rate (L/min): 2 Patient Handouts: Steps to Quit Smoking, [id number], Hypoxia, Heart Failure, Self Care, Heart Failure, Self Care, [id number], Chronic Obstructive Pulmonary Disease, [id number], Home Oxygen Use, Adult Referrals: Chelsie Pollack MD [Primary Care Provider] - 09/01/20 9:00 am (this is your arrival time the appointment is at 9:30 am) - Discharge Summary/Plan Comment DC Time >30 min.: Yes (45 mins ) - General Info Date of Service: 08/26/20 Admission Dx/Problem (Free Text: Admission Diagnosis/Problem Admission Diagnosis/Problem CHF, Acute Hypoxic Respiratory Failure Functional Status: Reports: Pain Controlled, Tolerating Diet, Ambulating, Urinating, Incentive Spirometry. Denies: New Symptoms - Review of Systems General: Reports: No Symptoms. Denies: Fever, Weakness, Fatigue, Malaise, Chills HEENT: Reports: No Symptoms. Denies: Headaches, Sore Throat Pulmonary: Reports: Shortness of Breath, Cough, Wheezing. Denies: Pleuritic Chest Pain, Sputum Cardiovascular: Reports: Dyspnea on Exertion, Edema. Denies: Chest Pain, Palpitations Gastrointestinal: Reports: No Symptoms. Denies: Abdominal Pain, Constipation, Vomiting Genitourinary: Reports: No Symptoms. Denies: Pain Musculoskeletal: Reports: No Symptoms Skin: Reports: No Symptoms. Denies: Cyanosis Neurological: Reports: No Symptoms. Denies: Confusion, Pre-Existing Deficit, Difficulty Walking, Weakness, Gait Disturbance Psychiatric: Reports: No Symptoms - Patient Data Vitals - Most Recent: Last Vital Signs Temp 98.1 F 08/26/20 08:16 Pulse 79 08/26/20 08:16 Resp 14 08/26/20 08:16 BP 109/54 L 08/26/20 08:16 Pulse Ox 86 L 08/26/20 09:39 Weight - Most Recent: 131 lb 4.8 oz I&O - Last 24 hours: Intake & Output 08/25/20 08/26/20 08/26/20 22:59 06:59 14:59 Intake Total 980 700 Output Total 2800 1000 Balance -1820 -300 Lab Results - Last 24 hrs: Laboratory Results - last 24 hr 08/26/20 08/26/20 Range/Units 05:40 05:40 Sodium 141 (136-145) mEq/L Potassium 3.9 (3.5-5.1) mEq/L Chloride 100 (98-107) mEq/L Carbon Dioxide 41 H* (21-32) mEq/L Anion Gap 3.9 L (5-15) BUN 16 (7-18) mg/dL Creatinine 0.8 (0.7-1.3) mg/dL Est Cr Clr Drug Dosing 65.14 mL/min Estimated GFR (MDRD) > 60 (>60) mL/min BUN/Creatinine Ratio 20.0 H (14-18) Glucose 87 (70-99) mg/dL Calcium 8.9 (8.5-10.1) mg/dL Magnesium 2.0 (1.8-2.4) mg/dL Med Orders - Current: Current Medications Acetaminophen (Acetaminophen 325 Mg Tab) 650 mg PO Q4H PRN PRN Reason: Pain (Mild 1-3)/fever Albuterol/Ipratropium (Albuterol/Ipratropium 3.0-0.5 Mg/3 Ml Neb Soln) 3 ml NEB Q4H [facility] Last Admin: 08/26/20 09:38 Dose: 3 ml Documented by: Aspirin (Aspirin 81 Mg Tab.Ec) 81 mg PO DAILY [facility] [place] Last Admin: 08/26/20 08:19 Dose: 81 mg Documented by: Cholecalciferol (Cholecalciferol (Vitamin D3) 25 Mcg Tab) 25 mcg PO DAILY [facility] [place] Last Admin: 08/26/20 08:18 Dose: 25 mcg Documented by: Docusate Sodium (Docusate Sodium 100 Mg Cap) 100 mg PO BID PRN PRN Reason: Constipation Ezetimibe (Ezetimibe 10 Mg Tab) 10 mg PO DAILY [facility] [place] Last Admin: 08/26/20 08:18 Dose: 10 mg Documented by: Fish Oil (Fish Oil/Kennard-3 Fatty Acids 1 Gm Cap) 1 gm PO DAILY [facility] [place] Last Admin: 08/26/20 08:18 Dose: 1 gm Documented by: Furosemide (Furosemide 20 Mg Tab) 20 mg PO DAILY [facility] [place] Last Admin: 08/26/20 08:18 Dose: 20 mg Documented by: Heparin Sodium (Porcine) (Heparin Sodium 5,000 Units/Ml Vial) 5,000 units SUBCUT Q8H [facility] [place] Last Admin: 08/26/20 05:47 Dose: 5,000 units Documented by: Miscellaneous Information (Remove Patch *Nicotine*) 1 ea TRDERM DAILY [facility] [place] Last Admin: 08/26/20 08:19 Dose: 1 ea Documented by: Multivitamins/Minerals/Vitamin C (Multivitamin Tab) 1 tab PO DAILY [facility] [place] Last Admin: 08/26/20 08:18 Dose: 1 tab Documented by: Nicotine (Nicotine 14 Mg/24 Hr Patch) 14 mg TRDERM DAILY [facility] [place] Last Admin: 08/26/20 08:19 Dose: 14 mg Documented by: Ondansetron HCl (Ondansetron 4 Mg Tab.Dis) 4 mg PO Q4H PRN PRN Reason: nausea, able to take PO Pravastatin Sodium (Pravastatin 20 Mg Tab) 20 mg PO DAILY [facility] [place] Last Admin: 08/26/20 08:18 Dose: 20 mg Documented by: Prednisone (Prednisone 20 Mg Tab) 40 mg PO DAILY [facility] [place] Stop: 08/28/20 12:46 Last Admin: 08/26/20 08:18 Dose: 40 mg Documented by: Risperidone (Risperidone 1 Mg Tab) 2 mg PO BEDTIME [facility] [place] Last Admin: 08/25/20 21:08 Dose: 2 mg Documented by: Sertraline HCl (Sertraline 50 Mg Tab) 100 mg PO BEDTIME [facility] [place] Last Admin: 08/25/20 21:08 Dose: 100 mg Documented by: Sodium Chloride (Sodium Chloride 0.9% 10 Ml Syringe) 10 ml FLUSH ASDIRECTED PRN PRN Reason: Keep Vein Open Temazepam (Temazepam 7.5 Mg Cap) 7.5 mg PO BEDTIME PRN PRN Reason: Sleep Last Admin: 08/25/20 21:09 Dose: 7.5 mg Documented by: Tiotropium [place] (Tiotropium [place] 4 Gm Inhalation [place] (2.5mcg/1 Dose; 10 Doses)) 0 gm INH DAILY [facility] [place] Last Admin: 08/26/20 09:39 Dose: 2 puff Documented by: Vitamin B Complex/Vit C/Folic Acid (Biotin/Folic Acid/Vitamin C/Vitamin B Complex Tab) 2 tab PO DAILY [facility] [place] Last Admin: 08/26/20 08:19 Dose: 2 tab Documented by: Discontinued Medications Albuterol/Ipratropium (Albuterol/Ipratropium 3.0-0.5 Mg/3 Ml Neb Soln) 3 ml NEB Q4H PRN PRN Reason: Shortness Of Breath/wheezing Last Admin: 08/23/20 09:20 Dose: 3 ml Documented by: Albuterol/Ipratropium (Albuterol/Ipratropium 3.0-0.5 Mg/3 Ml Neb Soln) 3 ml NEB Q4H PRN PRN Reason: Shortness Of Breath/wheezing Albuterol/Ipratropium (Albuterol/Ipratropium 3.0-0.5 Mg/3 Ml Neb Soln) 3 ml NEB Q4H [facility] [place] Furosemide (Furosemide 40 Mg/4 Ml Vial) 40 mg IVPUSH NOW ONE Stop: 08/23/20 09:09 Last Admin: 08/23/20 09:23 Dose: 40 mg Documented by: Furosemide (Furosemide 40 Mg/4 Ml Vial) 40 mg IVPUSH BIDDIURETIC [facility] [place] Last Admin: 08/25/20 05:29 Dose: 40 mg Documented by: Heparin Sodium (Porcine) (Heparin Sodium 5,000 Units/Ml Vial) 5,000 units SUBCUT Q8H [facility] [place] Last Admin: 08/23/20 13:14 Dose: Not Given Documented by: Nicotine (Nicotine 14 Mg/24 Hr Patch) 14 mg TRDERM DAILY [facility] [place] Last Admin: 08/23/20 13:14 Dose: Not Given Documented by: Prednisone (Prednisone 20 Mg Tab) 40 mg PO DAILY [facility] [place] Stop: 08/27/20 23:59 Last Admin: 08/23/20 13:14 Dose: Not Given Documented by: Sodium Chloride (Sodium Chloride 0.9% 10 Ml Syringe) 10 ml FLUSH ASDIRECTED PRN PRN Reason: Keep Vein Open Last Admin: 08/23/20 09:24 Dose: 10 ml Documented by: - Exam Quality Assessment: Reports: Supplemental Oxygen (2L), DVT Prophylaxis. Denies: Urine Catheter General: Reports: Alert, Oriented, Cooperative, No Acute Distress HEENT: Reports: Pupils Equal, Pupils Reactive, Mucous Membr. Moist/[place] Lungs: Reports: Normal Respiratory Effort, Decreased Breath Sounds, Wheezing (mild ) Cardiovascular: Reports: Regular Rate, Regular Rhythm GI/Abdominal Exam: Normal Bowel Sounds, Soft, Non-Tender, No Distention (Male) Exam: Deferred Rectal (Males) Exam: Deferred Back Exam: Reports: Normal Inspection, Full Range of Motion Extremities: Normal Inspection, Normal Range of Motion, Non-Tender, Normal Capillary Refill, Pedal Edema (Trace ) Skin: Reports: Warm, Dry, Intact Neurological: Reports: No New Focal Deficit Psy/Mental Status: Reports: Alert, Normal Affect, Normal Mood <Yosef Singer Jr - Last Filed: 08/26/20 16:07> Discharge Summary - Referral to Home Health Primary Care Physician: Chelsie Pollack MD - Patient Summary/Data Consults: Consultations 08/23/20 11:10 Respiratory Care Assess and Treatment [CONS] Routine 08/24/20 09:27 Consult to Gas Operations Superintendent [CONS] Routine - Discharge Summary/Plan Comment Discharge Summary/Plan Comment: Case reviewed and preceptored. Agree with evaluation, assessment and plan. -Anish Washington Jr., DO - Patient Data Vitals - Most Recent: Last Vital Signs Temp 97.5 F 08/26/20 11:18 Pulse 61 08/26/20 11:18 Resp 20 08/26/20 11:18 BP 118/55 L 08/26/20 11:18 Pulse Ox 95 08/26/20 11:18 I&O - Last 24 hours: Intake & Output 08/26/20 08/26/20 08/26/20 06:59 14:59 22:59 Intake Total 700 320 Output Total 1000 Balance -300 320 Lab Results - Last 24 hrs: Laboratory Results - last 24 hr 08/26/20 08/26/20 Range/Units 05:40 05:40 Sodium 141 (136-145) mEq/L Potassium 3.9 (3.5-5.1) mEq/L Chloride 100 (98-107) mEq/L Carbon Dioxide 41 H* (21-32) mEq/L Anion Gap 3.9 L (5-15) BUN 16 (7-18) mg/dL Creatinine 0.8 (0.7-1.3) mg/dL Est Cr Clr Drug Dosing 65.14 mL/min Estimated GFR (MDRD) > 60 (>60) mL/min BUN/Creatinine Ratio 20.0 H (14-18) Glucose 87 (70-99) mg/dL Calcium 8.9 (8.5-10.1) mg/dL Magnesium 2.0 (1.8-2.4) mg/dL Med Orders - Current: Current Medications Discontinued Medications Acetaminophen (Acetaminophen 325 Mg Tab) 650 mg PO Q4H PRN PRN Reason: Pain (Mild 1-3)/fever Albuterol/Ipratropium (Albuterol/Ipratropium 3.0-0.5 Mg/3 Ml Neb Soln) 3 ml NEB Q4H PRN PRN Reason: Shortness Of Breath/wheezing Last Admin: 08/23/20 09:20 Dose: 3 ml Documented by: Albuterol/Ipratropium (Albuterol/Ipratropium 3.0-0.5 Mg/3 Ml Neb Soln) 3 ml NEB Q4H PRN PRN Reason: Shortness Of Breath/wheezing Albuterol/Ipratropium (Albuterol/Ipratropium 3.0-0.5 Mg/3 Ml Neb Soln) 3 ml NEB Q4H [place] Albuterol/Ipratropium (Albuterol/Ipratropium 3.0-0.5 Mg/3 Ml Neb Soln) 3 ml NEB Q4H [facility] [place] Last Admin: 08/26/20 13:48 Dose: Not Given Documented by: Aspirin (Aspirin 81 Mg Tab.Ec) 81 mg PO DAILY [facility] [place] Last Admin: 08/26/20 08:19 Dose: 81 mg Documented by: Cholecalciferol (Cholecalciferol (Vitamin D3) 25 Mcg Tab) 25 mcg PO DAILY [facility] [place] Last Admin: 08/26/20 08:18 Dose: 25 mcg Documented by: Docusate Sodium (Docusate Sodium 100 Mg Cap) 100 mg PO BID PRN PRN Reason: Constipation Ezetimibe (Ezetimibe 10 Mg Tab) 10 mg PO DAILY [facility] [place] Last Admin: 08/26/20 08:18 Dose: 10 mg Documented by: Fish Oil (Fish Oil/Kennard-3 Fatty Acids 1 Gm Cap) 1 gm PO DAILY [facility] [place] Last Admin: 08/26/20 08:18 Dose: 1 gm Documented by: Furosemide (Furosemide 40 Mg/4 Ml Vial) 40 mg IVPUSH NOW ONE Stop: 08/23/20 09:09 Last Admin: 08/23/20 09:23 Dose: 40 mg Documented by: Furosemide (Furosemide 40 Mg/4 Ml Vial) 40 mg IVPUSH BIDDIURETIC [facility] [place] Last Admin: 08/25/20 05:29 Dose: 40 mg Documented by: Furosemide (Furosemide 20 Mg Tab) 20 mg PO DAILY [facility] [place] Last Admin: 08/26/20 08:18 Dose: 20 mg Documented by: Heparin Sodium (Porcine) (Heparin Sodium 5,000 Units/Ml Vial) 5,000 units SUBCUT Q8H [facility] [place] Last Admin: 08/23/20 13:14 Dose: Not Given Documented by: Heparin Sodium (Porcine) (Heparin Sodium 5,000 Units/Ml Vial) 5,000 units SUBCUT Q8H [facility] [place] Last Admin: 08/26/20 05:47 Dose: 5,000 units Documented by: Miscellaneous Information (Remove Patch *Nicotine*) 1 ea TRDERM DAILY [facility] [place] Last Admin: 08/26/20 08:19 Dose: 1 ea Documented by: Multivitamins/Minerals/Vitamin C (Multivitamin Tab) 1 tab PO DAILY [facility] [place] Last Admin: 08/26/20 08:18 Dose: 1 tab Documented by: Nicotine (Nicotine 14 Mg/24 Hr Patch) 14 mg TRDERM DAILY [facility] [place] Last Admin: 08/23/20 13:14 Dose: Not Given Documented by: Nicotine (Nicotine 14 Mg/24 Hr Patch) 14 mg TRDERM DAILY [facility] [place] Last Admin: 08/26/20 08:19 Dose: 14 mg Documented by: Ondansetron HCl (Ondansetron 4 Mg Tab.Dis) 4 mg PO Q4H PRN PRN Reason: nausea, able to take PO Pravastatin Sodium (Pravastatin 20 Mg Tab) 20 mg PO DAILY [facility] [place] Last Admin: 08/26/20 08:18 Dose: 20 mg Documented by: Prednisone (Prednisone 20 Mg Tab) 40 mg PO DAILY [facility] [place] Stop: 08/27/20 23:59 Last Admin: 08/23/20 13:14 Dose: Not Given Documented by: Prednisone (Prednisone 20 Mg Tab) 40 mg PO DAILY [facility] [place] Stop: 08/28/20 12:46 Last Admin: 08/26/20 08:18 Dose: 40 mg Documented by: Risperidone (Risperidone 1 Mg Tab) 2 mg PO BEDTIME [facility] [place] Last Admin: 08/25/20 21:08 Dose: 2 mg Documented by: Sertraline HCl (Sertraline 50 Mg Tab) 100 mg PO BEDTIME [facility] [place] Last Admin: 08/25/20 21:08 Dose: 100 mg Documented by: Sodium Chloride (Sodium Chloride 0.9% 10 Ml Syringe) 10 ml FLUSH ASDIRECTED PRN PRN Reason: Keep Vein Open Last Admin: 08/23/20 09:24 Dose: 10 ml Documented by: Sodium Chloride (Sodium Chloride 0.9% 10 Ml Syringe) 10 ml FLUSH ASDIRECTED PRN PRN Reason: Keep Vein Open Temazepam (Temazepam 7.5 Mg Cap) 7.5 mg PO BEDTIME PRN PRN Reason: Sleep Last Admin: 08/25/20 21:09 Dose: 7.5 mg Documented by: Tiotropium [place] (Tiotropium [place] 4 Gm Inhalation [place] (2.5mcg/1 Dose; 10 Doses)) 0 gm INH DAILY [facility] [place] Last Admin: 08/26/20 09:39 Dose: 2 puff Documented by: Vitamin B Complex/Vit C/Folic Acid (Biotin/Folic Acid/Vitamin C/Vitamin B Complex Tab) 2 tab PO DAILY [facility] [place] Last Admin: 08/26/20 08:19 Dose: 2 tab Documented by:
== END 2020-08-26 14:42 | disposition home or self-care (01) | DRG 291 ==
LOC: JD.ED 09:01 → JD.MS 11:05
PROVIDERS: ADMIT Hospitalist; ATTEND Hospitalist
DX: I11.0 Hypertensive heart disease with heart failure (principal); I50.9 Heart failure, unspecified; J96.01 Acute respiratory failure with hypoxia; I50.31 Acute diastolic (congestive) heart failure; J96.02 Acute respiratory failure with hypercapnia; E78.00 Pure hypercholesterolemia, unspecified; J43.1 Panlobular emphysema; G89.29 Other chronic pain; F32.89 Other specified depressive episodes; M19.90 Unspecified osteoarthritis, unspecified site; F32.9 Major depressive disorder, single episode, unspecified; F17.219 Nicotine dependence, cigarettes, with unspecified nicotine-induced disorders; F17.210 Nicotine dependence, cigarettes, uncomplicated; Z79.82 Long term (current) use of aspirin; Z79.899 Other long term (current) drug therapy; E78.5 Hyperlipidemia, unspecified; I73.9 Peripheral vascular disease, unspecified; M54.9 Dorsalgia, unspecified; M15.9 Polyosteoarthritis, unspecified; G47.00 Insomnia, unspecified; Z66 Do not resuscitate; Z20.822 Contact with and (suspected) exposure to COVID-19
CPT/HCPCS: 36415; 36600; 71045; 80053; 81001; 82803; 83735; 83880; 84484; 85025; 85610; 85730; 86140; 93005; 94640; 96374; 99285; J1940; U0002; 80048; 93010; 93306; 94760; 94761; 99223; 99233; 99239; A9270-GY; J1644; J7512; J7620-GY

== ENCOUNTER 2022-03-19 17:17 | Emergency (ER) | payer MEDICARE, BC ==
[2022-03-19] MEDS ORDERED: Albuterol/Ipratropium 3.0-0.5 MG/3 ML Neb Soln NEB ONE (18:41)
[2022-03-19 19:02] LABS: CORONAVIRUS COVID-19 NAA NEGATIVE (NEGATIVE)
[2022-03-19 19:39] LABS: ESTIMATED GFR 91 mL/min (>60)
[2022-03-19] MEDS ORDERED: Sodium Chloride 0.9% 1,000 ML IV ONE (20:17)
[2022-03-19] MEDS ORDERED: Albuterol 6.7 GM Inhaler INH ONE (21:32)
== END 2022-03-19 23:00 | disposition home or self-care (01) ==
LOC: JD.ED 17:17
DX: R06.02 Shortness of breath (principal); E87.1 Hypo-osmolality and hyponatremia; I11.0 Hypertensive heart disease with heart failure; I50.9 Heart failure, unspecified; E78.00 Pure hypercholesterolemia, unspecified; J44.9 Chronic obstructive pulmonary disease, unspecified; Z88.5 Allergy status to narcotic agent; Z88.8 Allergy status to other drugs, medicaments and biological substances; Z79.82 Long term (current) use of aspirin; Z79.899 Other long term (current) drug therapy; Z20.822 Contact with and (suspected) exposure to COVID-19
CPT/HCPCS: 0241U; 36415; 36600; 71045; 80053; 82803; 83605; 83735; 83880; 84295; 84484; 85007; 85027; 85379; 85610; 85730; 87040; 93005; 94640; 96360; 99285; A9270; J7030; J7620-GY

== ENCOUNTER 2022-03-20 08:17 | Emergency (ER) | payer MEDICARE, BC ==
[2022-03-20] MEDS ORDERED: Sodium Chloride 0.9% 1,000 ML IV SCH (08:30)
[2022-03-20] MEDS: Albuterol/Ipratropium 3.0-0.5 MG/3 ML Neb Soln NEB PRN ×2 (08:57→08:58)
[2022-03-20] MEDS ORDERED: Magnesium Sulfate/Water 2 GM in Premix Bag 1 BAG IV ONE (09:12)
[2022-03-20 09:21] LABS: ESTIMATED GFR 91 mL/min (>60)
[2022-03-20] MEDS ORDERED: Magnesium Oxide 400 MG Tab PO ONE (11:34)
== END 2022-03-20 12:43 | disposition home or self-care (01) ==
LOC: JD.ED 08:17
DX: S22.080A Wedge compression fracture of T11-T12 vertebra, initial encounter for closed fracture (principal); S12.190A Other displaced fracture of second cervical vertebra, initial encounter for closed fracture; E87.1 Hypo-osmolality and hyponatremia; E83.42 Hypomagnesemia; I11.0 Hypertensive heart disease with heart failure; I50.9 Heart failure, unspecified; E78.00 Pure hypercholesterolemia, unspecified; J44.9 Chronic obstructive pulmonary disease, unspecified; M19.90 Unspecified osteoarthritis, unspecified site; Z88.5 Allergy status to narcotic agent; Z88.8 Allergy status to other drugs, medicaments and biological substances; Z79.82 Long term (current) use of aspirin; Z79.899 Other long term (current) drug therapy; Z87.891 Personal history of nicotine dependence
CPT/HCPCS: 36415; 72131; 74018; 80053; 83930; 84155; 84165; 84443; 85652; 96361; 96365; 96366; 99285; A9270; J3475; J7030; J7620-GY